=== PATIENT | female | born 1985 | race American Indian/Alaskan Native ===

== ENCOUNTER 2016-09-20 08:56 | Emergency (ER) | payer OTHER ==
[2016-09-20 08:57] VITALS: BMI 46.3
[2016-09-20] MEDS ORDERED: MethylPREDNISolone 40 mg Vial IM STA (09:22)
[2016-09-20] MEDS: Albuterol-Ipratrop 3 mg / 0.5 (3 ml) UD IH SCH ×6 (09:32→11:31)
--- NOTE | 2016-09-20 10:03 | ED PDOC ---
Arrival/HPI - General Chief Complaint: Respiratory Distress Time Seen by Provider: 09/20/16 09:19 Historian: Patient - History of Present Illness Narrative History of Present Illness (Text): 09/20/16 10:00 Patient reports 2 day history of dyspnea and wheezing despite treatment with inhaler and nebulized treatments, last treatment was at 5 AM. Episode apparently precipitated by unknown cause. Has (-) fever; (+) cough; (-) sputum production, (-) chest pain. Patient has previous history of emergency department visits last was 1 month ago. Patient has previous history of hospital admissions last was 2 years ago. Patient was never intubated in the past. PMD Krunal Past Medical History - Provider Review Nursing Documentation Reviewed: Yes - Infectious Disease Hx of Infectious Diseases: None - Tetanus Immunization Tetanus Immunization: Up to Date - Reproductive Menopause: No - Cardiac Hx Cardiac Disorders: No - Pulmonary Hx Asthma: Yes - Psychiatric Hx Depression: No Hx Emotional Abuse: No Hx Physical Abuse: No Hx Substance Use: No - Surgical History Hx Section: Yes - Anesthesia Hx Anesthesia: Yes Hx Anesthesia Reactions: No Hx Malignant Hyperthermia: No - Suicidal Assessment Feels Threatened In Home Enviroment: No Family/Social History - Physician Review Nursing Documentation Reviewed: Yes Family/Social History: Unknown Family HX Smoking Status: Never Smoked Hx Alcohol Use: Yes Hx Substance Use: No Hx Substance Use Treatment: No Allergies/Home Meds Allergies/Adverse Reactions: Allergies No Known Allergies Allergy (Verified 08/24/16 13:17) Review of Systems - Review of Systems Constitutional: Normal. absent: Fatigue, Weight Change, Fevers ENT: Normal. absent: Hearing Changes, Tinnitus, TMJ Pain Respiratory: SOB, Cough, Wheezing Cardiovascular: Normal. absent: Chest Pain, Palpitations Musculoskeletal: Normal. absent: Arthralgias, Back Pain Skin: Normal. absent: Rash, Skin Lesions Physical Exam - Physical Exam Narrative Physical Exam (Text): 09/20/16 10:02 GENERAL APPEARANCE: Patient is awake, alert, oriented x 3, in mild respiratory distress, speaking in full sentences, no tripod positioning, no accessory muscle use. SKIN: Warm, dry; (-) cyanosis. EYES: (-) conjunctival pallor. ENMT: Mucous membranes moist. Airway patent: (-) stridor. Pharynx: (-) swelling, (-) erythema. NECK: (-) tenderness, (-) stiffness, (-) lymphadenopathy. CHEST AND RESPIRATORY: (+) bilateral inspiratory and expiratory wheezing; (-) rales, (-) rhonchi, (-) rub; breath sounds equal bilaterally. HEART AND CARDIOVASCULAR: (-) irregularity; (-) murmur, (-) gallop. ABDOMEN AND GI: Soft; (-) tenderness. EXTREMITIES: (-) deformity, (-) edema. NEURO AND PSYCH: Mental status as above; (-) focal findings. Vital Signs Temp Pulse Resp BP Pulse Ox 09/20/16 12:08 98.0 F 81 18 125/73 96 09/20/16 10:00 88 16 127/80 100 09/20/16 09:00 17 09/20/16 08:57 98.2 F 88 17 126/87 95 Medical Decision Making ED Course and Treatment: 09/20/16 10:03 31 yo F with PMH of asthma presents with asthma exacerbation. Plan: -- Solumedrol IM -- Duonebs x3 - Medication Orders Current Medication Orders: Discontinued Medications Albuterol/Ipratropium (Duoneb 3 Mg/0.5 Mg (3 Ml) Ud) 3 ml IH Q15M ARISTIDES Stop: 09/20/16 10:01 Last Admin: 09/20/16 10:05 Dose: 3 ML Albuterol/Ipratropium (Duoneb 3 Mg/0.5 Mg (3 Ml) Ud) 3 ml IH Q15M ARISTIDES Stop: 09/20/16 11:31 Last Admin: 09/20/16 11:31 Dose: 3 ML Methylprednisolone (Solu-Medrol) 125 mg IM STAT STA Stop: 09/20/16 09:26 Last Admin: 09/20/16 09:32 Dose: 125 MG IM Administration Charges Document 09/20/16 09:32 SF (Rec: 09/20/16 09:32 SF [id number]) Injection Site MAR Injection Site Right Deltoid Charges for Administration # of IM Administrations 1 ED OBSERVATION Date of observation admission: 09/20/16 Time of observation admission: 09:22 - Observation admission statement Patient is being placed in observation because:: Of asthma exacerbation. - Goals of Observation Goals of observation are:: To monitor patient's response to treatment. - Progress Note Progress Note: 09/20/16 09:22 Patient placed in ED observation, 3 duonebs started and patient given solumedrol IM. 09/20/16 10:47 On reevaluation, patient states that she feels much improved, denies any chest pain, dyspnea or shortness of breath. It is laying in bed comfortably in no distress, speaking in full sentences, no accessory muscle use, no tripod positioning. On exam, lungs noted with continued inspiratory and expiratory wheezing. The patient given another set of 3 DuoNeb treatments. Will continue to observe for further improvement of symptoms. 09/20/16 12:25 On re-evaluation, patient states that she feels much improved with no chest pain , dyspnea or SOB. Patient states that she wants to go home and feels comfortable going home. Patient is resting comfortably in bed in no acute respiratory distress, speaking in full sentences. Lungs are clear to auscultation with minimal expiratory wheezing. Based on history and exam, plan will be for outpatient follow-up. Prescription provided. Patient states she fully agrees with and understands discharge instructions. States that she agrees with the plan and disposition. Verbalized and repeated discharge instructions and plan. I have given the patient opportunity to ask any additional questions. Follow up with primary care physician in 1-2 days without fail. Advised to take medication as prescribed. Return to the emergency room at any time for any new or worsening symptoms. - PA / COASTAL AND ESTUARY SPECIALIST / Resident Statement / has reviewed & agrees with the documentation as recorded. Disposition/Present on Arrival - Present on Arrival Any Indicators Present on Arrival: No History of DVT/PE: No History of Uncontrolled Diabetes: No Urinary Catheter: No History of Decub. Ulcer: No History Surgical Site Infection Following: None - Disposition Have Diagnosis and Disposition been Completed?: Yes Diagnosis: Asthma exacerbation Disposition: HOME/ ROUTINE Disposition Time: 12:25 Patient Plan: Discharge Condition: GOOD Discharge Instructions (ExitCare): Asthma (ED) Print Language: ALBANIAN Additional Instructions: Thank you for letting us take care of you today. You were treated for asthma exacerbation. The emergency medical care you received today was directed at your acute symptoms. If you were prescribed any medication, please fill it and take as directed. It may take several days for your symptoms to resolve. Return to the Emergency Department if your symptoms worsen, do not improve, or if you have any other problems. Please contact your doctor in 2 days for re-evaluation and follow up / or call one of the physicians. Bring any paperwork you were given at discharge with you along with any medications you are taking to your follow up visit. Our treatment cannot replace ongoing medical care by a primary care provider (PCP) outside of the emergency department. Thank you for allowing the [facility] team to be part of your care today. Prescriptions: Albuterol HFA [Ventolin HFA 90 mcg/actuation (8 g)] 2 puff IH [id number] #1 puff Nebulizer [Aeroeclipse] 1 each MC PRN PRN #1 each PRN Reason: Wheezing Albuterol 0.083% [Albuterol Sulfate 3 Ml] 3 ml IH Q4 #100 neb predniSONE [predniSONE Tab] 40 mg PO DAILY #8 tab Referrals: Zane Hector MD [Primary Care Provider] - Follow up with primary Forms: WORK NOTE
[2016-09-20 12:09] VITALS: BP 125/73; PULSE 81; RESP 18; TEMP 98; O2SAT 96
== END 2016-09-20 12:31 | disposition home or self-care (01) ==
LOC: ED 08:56
DX: J45.901 Unspecified asthma with (acute) exacerbation (principal)
CPT/HCPCS: 94150; 96372; 99284; J2930

== ENCOUNTER 2016-11-02 04:38 | Inpatient (IN) | payer OTHER ==
[2016-11-02] MEDS: Albuterol-Ipratrop 3 mg / 0.5 (3 ml) UD IH SCH ×6 (04:39→21:05)
[2016-11-02 04:41] VITALS: BMI 49.4
--- NOTE | 2016-11-02 04:47 | ED PDOC ---
Arrival/HPI - General Time Seen by Provider: 11/02/16 04:39 Historian: Patient - History of Present Illness Narrative History of Present Illness (Text): 11/02/16 04:40 Yael Deutsch is a 31 year old female, whose past medical history includes asthma and seasonal allergies, who presents to the Emergency department complaining of shortness of breath and wheezing tonight. Patient states symptoms are consistent with previous episodes of asthma. Patient denies any fever, chills, chest pain, nausea, vomiting, diarrhea, urinary symptoms, back pain, neck pain, headache, dizziness, or any other complaints. Time/Duration: Other (tonight) Symptom Onset: Gradual Symptom Course: Unchanged Activities at Onset: Rest, Light Context: Home Past Medical History - Provider Review Nursing Documentation Reviewed: Yes - Infectious Disease Hx of Infectious Diseases: None - Tetanus Immunization Tetanus Immunization: Up to Date - Cardiac Hx Cardiac Disorders: No - Pulmonary Hx Asthma: Yes - Psychiatric Hx Depression: No Hx Emotional Abuse: No Hx Physical Abuse: No Hx Substance Use: No - Surgical History Hx Section: Yes - Anesthesia Hx Anesthesia: Yes Hx Anesthesia Reactions: No Hx Malignant Hyperthermia: No - Suicidal Assessment Feels Threatened In Home Enviroment: No Family/Social History - Physician Review Nursing Documentation Reviewed: Yes Family/Social History: No Known Family HX Smoking Status: Never Smoked Hx Alcohol Use: Yes Hx Substance Use: No Hx Substance Use Treatment: No Allergies/Home Meds Allergies/Adverse Reactions: Allergies No Known Allergies Allergy (Verified 11/02/16 04:41) Home Medications: Home Meds Medication Instructions Recorded Confirmed Albuterol HFA [Ventolin HFA 90 2 puff IH PRN PRN 11/02/16 11/02/16 mcg/actuation (8 g)] Review of Systems - Physician Review All systems were reviewed & negative as marked: Yes - Review of Systems Constitutional: Normal. absent: Fevers Eyes: Normal ENT: Normal Respiratory: SOB, Wheezing Cardiovascular: Normal. absent: Chest Pain Gastrointestinal: Normal. absent: Abdominal Pain, Diarrhea, Nausea, Vomiting Genitourinary Female: Normal. absent: Dysuria, Frequency, Hematuria, Urine Output Changes Musculoskeletal: Normal. absent: Back Pain, Neck Pain Skin: Normal. absent: Rash Neurological: Normal. absent: Headache, Dizziness Endocrine: Normal Hemo/Lymphatic: Normal Psychiatric: Normal Physical Exam Vital Signs Reviewed: Yes Vital Signs Temp Pulse Resp BP Pulse Ox 11/02/16 07:40 99 H 20 115/50 L 100 11/02/16 06:56 68 149/67 95 11/02/16 04:46 99.2 F 115 H 28 H 161/68 H 100 Temperature: Afebrile Blood Pressure: Normal Pulse: Regular Respiratory Rate: Normal Appearance: Positive for: Well-Appearing, Non-Toxic, Comfortable Pain Distress: None Mental Status: Positive for: Alert and Oriented X 3 - Systems Exam Head: Present: Atraumatic, Normocephalic Pupils: Present: PERRL Extroacular Muscles: Present: EOMI Conjunctiva: Present: Normal Mouth: Present: Moist Mucous Membranes Neck: Present: Normal Range of Motion Respiratory/Chest: Present: Wheezes. No: Respiratory Distress, Accessory Muscle Use Cardiovascular: Present: Regular Rate and Rhythm, Normal S1, S2. No: Murmurs Abdomen: Present: Normal Bowel Sounds. No: Tenderness, Distention, Peritoneal Signs Back: Present: Normal Inspection Upper Extremity: Present: Normal Inspection. No: Cyanosis, Edema Lower Extremity: Present: Normal Inspection. No: Edema Neurological: Present: GCS=15, CN II-XII Intact, Speech Normal Skin: Present: Warm, Dry, Normal Color. No: Rashes Psychiatric: Present: Alert, Oriented x 3, Normal Insight, Normal Concentration Medical Decision Making ED Course and Treatment: 11/02/16 04:40 Impression: 31 year old female complaining of shortness of breath and wheezing tonight. Differential Diagnosis include but are not limited to: asthma Plan: -- Duoneb -- Solu-medrol -- Reassess and disposition Progress Notes: 11/02/16 06:04 On re-evaluation, pt is still wheezing. Case discussed with medical assisting program director, who is aware and agree with plan. 11/02/16 06:[address] Sharp, who is aware and agrees with plan. Accepts pt in to hospitalist service. Pt will go remote telemetry observation for asthma. - Lab Interpretations Lab Results: 11/03/16 08:00 11/03/16 08:00 Lab Results 11/03/16 08:00: Sodium 139, Potassium 4.3, Chloride 104, Carbon Dioxide 25, Anion Gap 14, BUN 12, Creatinine 0.7, Est GFR ( Amer) > 60, Est GFR (Non- Af Amer) > 60, Random Glucose 166 H, Calcium 9.6, Phosphorus 2.9, Magnesium 2.4 H, Total Bilirubin 0.4, AST 27, ALT 30, Alkaline Phosphatase 63, Total Protein 8.5 H, Albumin 4.3, Globulin 4.2, Albumin/Globulin Ratio 1.0 L 11/03/16 08:00: WBC 24.2 H D, RBC 4.66, Hgb 11.4 L, Hct 34.2 L, MCV 73.4 L, MCH 24.5 L, MCHC 33.3, RDW 15.5 H, Plt Count 295, MPV 11.2 H, Gran % 93.6 H, Lymph % (Auto) 2.7 L, Douglas % (Auto) 3.7, Eos % (Auto) 0.0 L, Baso % (Auto) 0.0, Gran # 22.60 H, Lymph # 0.7 L, Douglas # 0.9 H, Eos # 0.0, Baso # 0.01 11/02/16 07:15: pCO2 36, pO2 61.0 L, HCO3 22.3, ABG pH 7.40, ABG Total CO2 23.4 , ABG O2 Saturation 95.2, ABG O2 Content 14.8 L, ABG Base Excess -2.1 L, ABG Hemoglobin 11.3 L, ABG Carboxyhemoglobin 1.7 H, POC ABG HHb (Measured) 4.7, ABG Methemoglobin 0.6, ABG O2 Capacity 15.5 L, Hgb O2 Saturation 92.9 L, FiO2 21.0 11/02/16 06:05: Sodium 138, Potassium 3.7, Chloride 102, Carbon Dioxide 25, Anion Gap 15, BUN 12, Creatinine 0.8, Est GFR ( Amer) > 60, Est GFR (Non- Af Amer) > 60, Random Glucose 139 H, Calcium 9.0, Total Bilirubin 0.4, AST 23, ALT 30, Alkaline Phosphatase 68, Total Protein 8.4 H, Albumin 4.1, Globulin 4.3 , Albumin/Globulin Ratio 1.0 L 11/02/16 06:05: WBC 11.2 H, RBC 4.68, Hgb 11.3 L, Hct 34.4 L, MCV 73.5 L, MCH 24.1 L, MCHC 32.8, RDW 15.1 H, Plt Count 287, MPV 11.8 H, Gran % 82.8 H, Lymph % (Auto) 10.5 L, Douglas % (Auto) 3.8, Eos % (Auto) 2.5, Baso % (Auto) 0.4, Gran # 9.25 H, Lymph # 1.2, Douglas # 0.4, Eos # 0.3, Baso # 0.05 - RAD Interpretation Radiology Orders: 11/02/16 06:54 CHEST PORTABLE [RAD] Stat - Medication Orders Current Medication Orders: Acetaminophen (Tylenol 325mg Tab) 650 mg PO Q6H PRN PRN Reason: Pain, Mild (1-3) Albuterol/Ipratropium (Duoneb 3 Mg/0.5 Mg (3 Ml) Ud) 3 ml IH Q2H PRN PRN Reason: Shortness of Breath Last Admin: 11/03/16 19:12 Dose: 3 ml Enoxaparin Sodium (Lovenox) 40 mg SC DAILY [facility] PRN Reason: Protocol Last Admin: 11/03/16 09:26 Dose: 40 mg Guaifenesin/Dextromethorphan (Robitussin Dm) 10 ml PO Q4H PRN PRN Reason: Cough Last Admin: 11/02/16 11:30 Dose: 10 ml Ceftriaxone Sodium (Rocephin 1 Gram Ivpb) 1 gm in 100 mls @ 100 mls/hr IVPB DAILY [facility] PRN Reason: Protocol Last Admin: 11/03/16 09:27 Dose: 100 mls/hr Ibuprofen (Motrin Tab) 400 mg PO Q6H PRN PRN Reason: Fever >100.4 F Last Admin: 11/03/16 00:25 Dose: 400 mg Re-Assess: ANN Pain/Vitals Document 11/03/16 01:25 CARINE (Rec: 11/03/16 07:32 CARINE [id number]) Pain Reassessment Is This A Pain ReAssessment? Yes Presence of Pain Presence of Pain No Loratadine (Claritin) 10 mg PO DAILY PRN PRN Reason: Allergy symptoms Methylprednisolone (Solu-Medrol) 20 mg IVP Q12 [facility] Last Admin: 11/03/16 21:38 Dose: 20 mg Ondansetron HCl (Zofran Inj) 4 mg IVP Q6H PRN PRN Reason: Nausea/Vomiting Oxymetazoline HCl (Afrin 0.05%) 0 ml NS Q12H PRN PRN Reason: Dry nasal passages Pantoprazole Sodium (Protonix Ec Tab) 40 mg PO DAILY [facility] Last Admin: 11/03/16 09:26 Dose: 40 mg Discontinued Medications Acetaminophen (Tylenol 650mg/20.3ml Solution Ud) 650 mg PO STAT STA Stop: 11/02/16 06:12 Last Admin: 11/02/16 06:14 Dose: 650 mg Acetaminophen (Tylenol 325mg Tab) Confirm Administered Dose 650 mg .ROUTE .STK- MED ONE Stop: 11/02/16 06:14 Last Admin: 11/02/16 06:14 Dose: Albuterol/Ipratropium (Duoneb 3 Mg/0.5 Mg (3 Ml) Ud) Confirm Administered Dose 9 ml .ROUTE .STK-MED ONE Stop: 11/02/16 04:49 Last Admin: 11/02/16 04:51 Dose: 9 ml Albuterol/Ipratropium (Duoneb 3 Mg/0.5 Mg (3 Ml) Ud) 3 ml IH Q15M ARISTIDES Stop: 11/02/16 05:31 Last Admin: 11/02/16 04:58 Dose: Albuterol/Ipratropium (Duoneb 3 Mg/0.5 Mg (3 Ml) Ud) 3 ml IH Q4H [facility] Stop: 11/02/16 15:01 Last Admin: 11/03/16 00:59 Dose: 3 ml Albuterol/Ipratropium (Duoneb 3 Mg/0.5 Mg (3 Ml) Ud) 3 ml IH Q2H PRN PRN Reason: Shortness of Breath Stop: 11/02/16 11:01 Last Admin: 11/02/16 13:02 Dose: 3 ml Sodium Chloride (Sodium Chloride 0.9%) 1,000 mls @ 100 mls/hr IV .Q10H [facility] Last Admin: 11/03/16 09:27 Dose: 100 mls/hr Methylprednisolone (Solu-Medrol) Confirm Administered Dose 125 mg .ROUTE .STK- MED ONE Stop: 11/02/16 04:43 Last Admin: 11/02/16 04:54 Dose: Methylprednisolone (Solu-Medrol) 125 mg IVP ONCE ONE Stop: 11/02/16 04:53 Last Admin: 11/02/16 04:43 Dose: 125 mg Methylprednisolone (Solu-Medrol) 40 mg IVP Q8 [facility] Last Admin: 11/03/16 05:31 Dose: 40 mg Methylprednisolone (Solu-Medrol) 20 mg IVP Q12 [facility] Last Admin: 11/03/16 12:33 Dose: 20 mg - Jax Statement The provider has reviewed the documentation as recorded by the Jax Nash All medical record entries made by the Jax were at my direction and personally dictated by me. I have reviewed the chart and agree that the record accurately reflects my personal performance of the history, physical exam, medical decision making, and the department course for this patient. I have also personally directed, reviewed, and agree with the discharge instructions and disposition. Disposition/Present on Arrival - Present on Arrival Any Indicators Present on Arrival: No History of DVT/PE: No History of Uncontrolled Diabetes: No Urinary Catheter: No History Surgical Site Infection Following: None - Disposition Have Diagnosis and Disposition been Completed?: Yes Diagnosis: Asthma exacerbation Disposition: HOSPITALIZED Disposition Time: 06:40 Condition: GOOD
[2016-11-02] MEDS ORDERED: Albuterol-Ipratrop 3 mg / 0.5 (3 ml) UD ONE (04:48)
[2016-11-02] MEDS ORDERED: Acetaminophen 650mg/20.3ml solution UD PO STA (06:11)
[2016-11-02 06:43] LABS: ADD MANUAL DIFF? NO
[2016-11-02 06:56] LABS: BASO # 0.05 K/mm3 (0.0-2.0); BASO % 0.4 % (0.0-3.0); EOS # 0.3 (0.0-0.7); EOS % 2.5 % (1.5-5.0); GRAN # 9.25 (1.4-6.5); GRAN % 82.8 % (50.0-68.0); HEMATOCRIT 34.4 % (36.0-48.0); LYMPH # 1.2 (1.2-3.4); LYMPH % 10.5 % (22.0-35.0); MEAN CELL VOLUME 73.5 fL (80.0-105.0); MEAN CORPUSCULAR HEMOGLOBIN 24.1 pg (25.0-35.0); MEAN CORPUSCULAR HGB CONC 32.8 g/dl (31.0-37.0); MEAN PLATELET VOLUME 11.8 fl (7.0-11.0); MONO # 0.4 (0.1-0.6); MONO % 3.8 % (1.0-6.0); PLATELET COUNT 287 10^3/uL (120.0-450.0); RED CELL DISTRIBUTION WIDTH 15.1 % (11.5-14.5); WHITE BLOOD COUNT 11.2 10^3/ul (4.5-11.0)
[2016-11-02] MEDS: Sodium Chloride 0.9% 1,000 ML IV SCH (07:00)
--- NOTE | 2016-11-02 07:01 | CP.PCM.HP ---
History of Present Illness - History of Present Illness History of Present Illness: History of Present Illness: The patient is a 31 year old, morbidly obese, woman with a history of long-standing, mild persistent asthma who presents with several days of worsening shortness of breath and wheezing. She also reports an associated cough with yellow colored phlegm and rhinorrhea. She also reports several weeks of intermittent, dull right lower chest discomfort, unaffected by exertion or breathing. She denies fevers or chills. In the ED, she was tachypeic and having respiratory distress. Consequently, she will be admitted to the telemetry rinaldi for further management of her symptoms. Home Medications: Ventolin Inhaler Atrovent Inhaler (?) Allergies: NKDA Past Medical History: Per HPI Past Surgical History: Per HPI Family History: Non-contributory Social History: Denies tobacco and illicit drug use Occasional alcohol use Review of Systems: 14 bodily systems reviewed and found to be negative except as noted in the HPI Present on Admission - Present on Admission Any Indicators Present on Admission: No History of DVT/PE: No History of Uncontrolled Diabetes: No Past Patient History - Infectious Disease Hx of Infectious Diseases: None - Tetanus Immunizations Tetanus Immunization: Up to Date - Past Social History Smoking Status: Never Smoked - CARDIAC Hx Cardiac Disorders: No - PULMONARY Hx Asthma: Yes - NEUROLOGICAL Hx Neurological Disorder: No - HEENT Hx HEENT Problems: No - RENAL Hx Chronic Kidney Disease: No - ENDOCRINE/METABOLIC Hx Endocrine Disorders: No - HEMATOLOGICAL/ONCOLOGICAL Hx Blood Disorders: No - INTEGUMENTARY Hx Dermatological Problems: No - MUSCULOSKELETAL/RHEUMATOLOGICAL Hx Musculoskeletal Disorders: No - GASTROINTESTINAL Hx Gastrointestinal Disorders: No - GENITOURINARY/GYNECOLOGICAL Hx Genitourinary Disorders: No - PSYCHIATRIC Hx Depression: No Hx Emotional Abuse: No Hx Physical Abuse: No Hx Substance Use: No - SURGICAL HISTORY Hx Section: Yes - ANESTHESIA Hx Anesthesia: Yes Hx Anesthesia Reactions: No Hx Malignant Hyperthermia: No Meds Allergies/Adverse Reactions: Allergies Allergy/AdvReac Type Severity Reaction Status Date / Time No Known Allergies Allergy Verified 11/02/16 04:41 Physical Exam - Constitutional Additional comments: Uncomfortable appearing due to respiratory distress; A&Ox4 - Head Exam Head Exam: ATRAUMATIC, NORMAL INSPECTION, NORMOCEPHALIC - Eye Exam Eye Exam: Normal appearance Pupil Exam: PERRL - ENT Exam ENT Exam: Mucous Membranes Moist, Normal Exam - Neck Exam Neck exam: Positive for: Normal Inspection - Respiratory Exam Respiratory Exam: Prolonged Expiratory Phase, Wheezes, Respiratory Distress Additional comments: No accessory muscle use - Cardiovascular Exam Cardiovascular Exam: Tachycardia, REGULAR RHYTHM, +S1, +S2 - GI/Abdominal Exam Additional comments: Morbidly obese, soft, non-tender, non-distended - Extremities Exam Extremities exam: Positive for: normal inspection - Neurological Exam Additional comments: Grossly normal neuro exam Results - Vital Signs Recent Vital Signs: Last Vital Signs Temp 99.2 F 11/02/16 04:46 Pulse 68 11/02/16 06:56 Resp 27 H 11/02/16 04:46 BP 149/67 11/02/16 06:56 Pulse Ox 95 11/02/16 06:56 - Labs Result Diagrams: 11/02/16 06:05 11/02/16 06:05 Assessment & Plan - Assessment and Plan (Free Text) Plan: Assessment and Plan: The patient is a 31 year old, morbidly obese, woman with a history of long-standing, mild persistent asthma, who is being admitted to telemetry rinaldi for acute asthma exacerbation and acute bronchitis. 1. Acute Asthma Exacerbation: -Duo-neb breathing treatments ATC and PRN -continue with O2 via NC to keep sats > 92% -Solumedrol 40mg IV Q8hrs for bronchodilation -will check an ABG and CXR now -patient needs to be on a inhaled corticosteroid long-term 2. Acute Bronchitis: -likely viral etiology -will check a CXR to rule out pneumonia -PRN Robitussan for cough -PRN Claritin for seasonal allergy symptoms 3. Morbid Obesity: -after acute symptoms resolve, patient must be counseled on exercise and dieting DVT PPx: SCDs GI PPx: Protonix
[2016-11-02 07:17] LABS: ALKALINE PHOSPHATASE 68 U/L (38-133); ALT/SGPT 30 U/L (7-56); AST/SGOT 23 U/L (15-39); BILIRUBIN,TOTAL 0.4 mg/dL (0.2-1.3); BLOOD UREA NITROGEN 12 mg/dL (7-21); CARBON DIOXIDE 25 mmol/L (21-33); CHLORIDE 102 mmol/L (98-107); GFR AFRICAN-AMERICAN > 60; GLUCOSE,RANDOM 139 mg/dL (70-110); POTASSIUM 3.7 mmol/L (3.6-5.0); SODIUM 138 mmol/L (132-148); TOTAL PROTEIN 8.4 g/dL (5.8-8.3)
[2016-11-02 07:18] LABS: ARTERIAL BLOOD GAS HCO3 22.3 mmol/L (21-28); ARTERIAL BLOOD GAS O2 CAPACITY 15.5 mL/dl (16-24); ARTERIAL BLOOD GAS O2 CONTENT 14.8 ML/dl (15-23); ARTERIAL BLOOD HGB O2 SAT 92.9 % (95.0-98.0); CARBOXYHEMOGLOBIN 1.7 % (0.5-1.5); HHB 4.7 % (0-5); METHEMOGLOBIN 0.6 % (0.0-3.0)
[2016-11-02] MEDS ORDERED: guaiFENesin DM 200 mg-20 mg/10 ml UD PO PRN (07:29)
[2016-11-02] MEDS: Albuterol-Ipratrop 3 mg / 0.5 (3 ml) UD IH PRN ×2 (09:00→13:02)
--- NOTE | 2016-11-02 10:06 | RAD ---
HISTORY: sob COMPARISON: 08/24/2016 FINDINGS: LUNGS: No active pulmonary disease. PLEURA: No significant pleural effusion identified, no pneumothorax apparent. CARDIOVASCULAR: Normal. OSSEOUS STRUCTURES: No significant abnormalities. VISUALIZED UPPER ABDOMEN: Normal. OTHER FINDINGS: None. IMPRESSION: No active disease.
[2016-11-02] MEDS: Pantoprazole 40 mg EC Tab PO SCH (11:30)
[2016-11-02] MEDS: cefTRIAXone 1 gm 1 GM/100 ML BAG IVPB SCH (11:30)
[2016-11-02] MEDS: Enoxaparin 40 mg Syringe SC SCH (11:30)
[2016-11-02] MEDS: MethylPREDNISolone 40 mg Vial IVP SCH ×2 (15:08→21:09)
[2016-11-03] MEDS: Albuterol-Ipratrop 3 mg / 0.5 (3 ml) UD IH SCH (00:59)
[2016-11-03] MEDS ORDERED: Oxymetazoline 0.05% Nasal Spray (30 ml) NS PRN (01:38)
--- NOTE | 2016-11-03 02:25 | CARD ---
APPROVED REPORT EKG Measurement Heart [id number] ID [id number] <Conclusion> Normal sinus rhythm Nonspecific inferior T wave changes Abnormal ECG
[2016-11-03] MEDS: MethylPREDNISolone 40 mg Vial IVP SCH ×2 (05:31→21:38)
--- NOTE | 2016-11-03 07:28 | CP.PCM.PN ---
<Miguel Anderson - Last Filed: 11/03/16 13:29> Subjective - Date & Time of Evaluation Date of Evaluation: 11/03/16 Time of Evaluation: 07:20 - Subjective Subjective: Patient seen and examined this morning. Reports feeling better today. Patient had an episode of nosebleed over night. No longer bleeding. No other complaints. Objective - Vital Signs/Intake and Output Vital Signs (last 24 hours): Temp Pulse Resp BP Pulse Ox 99 F 99 H 20 120/71 99 11/02/16 16:00 11/03/16 02:00 11/02/16 16:00 11/02/16 16:00 11/02/16 16:00 Intake and Output: 11/03/16 11/03/16 06:59 18:59 Intake Total 1240 Balance 1240 - Medications Medications: Current Medications Acetaminophen (Tylenol 325mg Tab) 650 mg PO Q6H PRN PRN Reason: Pain, Mild (1-3) Albuterol/Ipratropium (Duoneb 3 Mg/0.5 Mg (3 Ml) Ud) 3 ml IH Q2H PRN PRN Reason: Shortness of Breath Enoxaparin Sodium (Lovenox) 40 mg SC DAILY [facility] PRN Reason: Protocol Last Admin: 11/02/16 11:30 Dose: 40 mg Guaifenesin/Dextromethorphan (Robitussin Dm) 10 ml PO Q4H PRN PRN Reason: Cough Last Admin: 11/02/16 11:30 Dose: 10 ml Sodium Chloride (Sodium Chloride 0.9%) 1,000 mls @ 100 mls/hr IV .Q10H ARISTIDES Last Admin: 11/02/16 07:00 Dose: 100 mls/hr Ceftriaxone Sodium (Rocephin 1 Gram Ivpb) 1 gm in 100 mls @ 100 mls/hr IVPB DAILY [facility] PRN Reason: Protocol Last Admin: 11/02/16 11:30 Dose: 100 mls/hr Ibuprofen (Motrin Tab) 400 mg PO Q6H PRN PRN Reason: Fever >100.4 F Last Admin: 11/03/16 00:25 Dose: 400 mg Loratadine (Claritin) 10 mg PO DAILY PRN PRN Reason: Allergy symptoms Methylprednisolone (Solu-Medrol) 40 mg IVP Q8 [facility] Last Admin: 11/03/16 05:31 Dose: 40 mg Ondansetron HCl (Zofran Inj) 4 mg IVP Q6H PRN PRN Reason: Nausea/Vomiting Oxymetazoline HCl (Afrin 0.05%) 0 ml NS Q12H PRN PRN Reason: Dry nasal passages Pantoprazole Sodium (Protonix Ec Tab) 40 mg PO DAILY [facility] Last Admin: 11/02/16 11:30 Dose: 40 mg - Constitutional Appears: No Acute Distress - Head Exam Head Exam: NORMOCEPHALIC - Eye Exam Eye Exam: Normal appearance - ENT Exam ENT Exam: Mucous Membranes Moist - Respiratory Exam Respiratory Exam: Wheezes. absent: Rhonchi - Cardiovascular Exam Cardiovascular Exam: +S1, +S2 - GI/Abdominal Exam GI & Abdominal Exam: Soft. absent: Distended, Firm, Guarding, Tenderness - Neurological Exam Neurological Exam: Alert, Awake, Oriented x3 - Psychiatric Exam Psychiatric exam: Normal Mood - Skin Skin Exam: Dry, Intact, Warm Assessment and Plan - Assessment and Plan (Free Text) Assessment: The patient is a 31 year old, morbidly obese, woman with a history of long-standing, mild persistent asthma, who is being admitted to telemetry rinaldi for acute asthma exacerbation and acute bronchitis. Plan: 1. Acute Asthma Exacerbation: -Duo-neb breathing treatments ATC and PRN -O2 via NC to keep sats > 92%, humidified -Solumedrol 20mg IV Q12hrs for bronchodilation -CXR: No acute findings -patient needs to be on a inhaled corticosteroid long-term -Elevated WBC, attributed to corticosteroid therapy -Clinically improving -D/Ctelemetry 2. Acute Bronchitis: -likely viral etiology -PRN Robitussan for cough -PRN Claritin for seasonal allergy symptoms 3. Morbid Obesity: -after acute symptoms resolve, -patient counseled on exercise and dieting DVT PPx: SCD/ Lovenox GI PPx: Protonix <Hakan ZIMMER,Jatinder - Last Filed: 11/03/16 13:51> Objective - Vital Signs/Intake and Output Vital Signs (last 24 hours): Temp Pulse Resp BP Pulse Ox 98.3 F 86 22 145/90 95 11/03/16 06:00 11/03/16 06:00 11/03/16 06:00 11/03/16 06:00 11/03/16 06:00 - Medications Medications: Current Medications Acetaminophen (Tylenol 325mg Tab) 650 mg PO Q6H PRN PRN Reason: Pain, Mild (1-3) Albuterol/Ipratropium (Duoneb 3 Mg/0.5 Mg (3 Ml) Ud) 3 ml IH Q2H PRN PRN Reason: Shortness of Breath Last Admin: 11/03/16 13:40 Dose: 3 ml Enoxaparin Sodium (Lovenox) 40 mg SC DAILY [facility] PRN Reason: Protocol Last Admin: 11/03/16 09:26 Dose: 40 mg Guaifenesin/Dextromethorphan (Robitussin Dm) 10 ml PO Q4H PRN PRN Reason: Cough Last Admin: 11/02/16 11:30 Dose: 10 ml Ceftriaxone Sodium (Rocephin 1 Gram Ivpb) 1 gm in 100 mls @ 100 mls/hr IVPB DAILY [facility] PRN Reason: Protocol Last Admin: 11/03/16 09:27 Dose: 100 mls/hr Ibuprofen (Motrin Tab) 400 mg PO Q6H PRN PRN Reason: Fever >100.4 F Last Admin: 11/03/16 00:25 Dose: 400 mg Loratadine (Claritin) 10 mg PO DAILY PRN PRN Reason: Allergy symptoms Methylprednisolone (Solu-Medrol) 20 mg IVP Q12 [facility] Last Admin: 11/03/16 12:33 Dose: 20 mg Ondansetron HCl (Zofran Inj) 4 mg IVP Q6H PRN PRN Reason: Nausea/Vomiting Oxymetazoline HCl (Afrin 0.05%) 0 ml NS Q12H PRN PRN Reason: Dry nasal passages Pantoprazole Sodium (Protonix Ec Tab) 40 mg PO DAILY [facility] Last Admin: 11/03/16 09:26 Dose: 40 mg Attending/Attestation - Attestation I have personally seen and examined this patient.: Yes I have fully participated in the care of the patient.: Yes I have reviewed all pertinent clinical information, including history, physical exam and plan: Yes Notes (Text): Patient was seen and examined with medical insurance verifier .Agreed with resident assessment and plan. 31 Morbidly obese female with acute asthma exacerbation, improving. Leukocytosis is due to IV Methylprednisolon. Patient is afebrile.Wheezing has improved.We will decrease the dose of methylprednisolon to 20 mg IVPB BID. If Patient will keep improving, will switch to oral prednisone in 24 hour. Management plan was discussed in detail with patient Education was provided.
[2016-11-03 08:19] LABS: ADD MANUAL DIFF? NO
[2016-11-03 08:22] LABS: BASO # 0.01 K/mm3 (0.0-2.0); GRAN % 93.6 % (50.0-68.0); HEMATOCRIT 34.2 % (36.0-48.0); LYMPH # 0.7 (1.2-3.4); LYMPH % 2.7 % (22.0-35.0); MEAN CELL VOLUME 73.4 fL (80.0-105.0); MEAN CORPUSCULAR HEMOGLOBIN 24.5 pg (25.0-35.0); MEAN CORPUSCULAR HGB CONC 33.3 g/dl (31.0-37.0); MEAN PLATELET VOLUME 11.2 fl (7.0-11.0); MONO # 0.9 (0.1-0.6); MONO % 3.7 % (1.0-6.0); PLATELET COUNT 295 10^3/uL (120.0-450.0); RED CELL DISTRIBUTION WIDTH 15.5 % (11.5-14.5); WHITE BLOOD COUNT 24.2 10^3/ul (4.5-11.0)
[2016-11-03 08:38] LABS: ALKALINE PHOSPHATASE 63 U/L (38-133); ALT/SGPT 30 U/L (7-56); AST/SGOT 27 U/L (15-39); BILIRUBIN,TOTAL 0.4 mg/dL (0.2-1.3); BLOOD UREA NITROGEN 12 mg/dL (7-21); CALCIUM 9.6 mg/dL (8.4-10.5); CARBON DIOXIDE 25 mmol/L (21-33); CHLORIDE 104 mmol/L (98-107); GFR AFRICAN-AMERICAN > 60; GLUCOSE,RANDOM 166 mg/dL (70-110); MAGNESIUM 2.4 mg/dL (1.7-2.2); PHOSPHOROUS 2.9 mg/dL (2.5-4.5); POTASSIUM 4.3 mmol/L (3.6-5.0); SODIUM 139 mmol/L (132-148); TOTAL PROTEIN 8.5 g/dL (5.8-8.3)
[2016-11-03] MEDS: Enoxaparin 40 mg Syringe SC SCH (09:26)
[2016-11-03] MEDS: Pantoprazole 40 mg EC Tab PO SCH (09:26)
[2016-11-03] MEDS: cefTRIAXone 1 gm 1 GM/100 ML BAG IVPB SCH (09:27)
[2016-11-03] MEDS: Sodium Chloride 0.9% 1,000 ML IV SCH (09:27)
[2016-11-03] MEDS: Albuterol-Ipratrop 3 mg / 0.5 (3 ml) UD IH PRN ×3 (10:38→19:12)
[2016-11-03] MEDS ORDERED: MethylPREDNISolone 40 mg Vial IVP SCH (12:30)
[2016-11-04 07:16] LABS: ADD MANUAL DIFF? NO
[2016-11-04 07:27] LABS: BASO # 0.01 K/mm3 (0.0-2.0); GRAN # 20.32 (1.4-6.5); GRAN % 89.5 % (50.0-68.0); HEMATOCRIT 33.7 % (36.0-48.0); LYMPH % 4.2 % (22.0-35.0); MEAN CELL VOLUME 73.3 fL (80.0-105.0); MEAN CORPUSCULAR HEMOGLOBIN 24.6 pg (25.0-35.0); MEAN CORPUSCULAR HGB CONC 33.5 g/dl (31.0-37.0); MEAN PLATELET VOLUME 11.3 fl (7.0-11.0); MONO # 1.4 (0.1-0.6); MONO % 6.3 % (1.0-6.0); PLATELET COUNT 306 10^3/uL (120.0-450.0); RED CELL DISTRIBUTION WIDTH 15.6 % (11.5-14.5); WHITE BLOOD COUNT 22.7 10^3/ul (4.5-11.0)
[2016-11-04 07:41] LABS: ALKALINE PHOSPHATASE 58 U/L (38-133); ALT/SGPT 28 U/L (7-56); AST/SGOT 22 U/L (15-39); BILIRUBIN,TOTAL 0.4 mg/dL (0.2-1.3); BLOOD UREA NITROGEN 12 mg/dL (7-21); CALCIUM 9.6 mg/dL (8.4-10.5); CARBON DIOXIDE 27 mmol/L (21-33); CHLORIDE 102 mmol/L (98-107); GFR AFRICAN-AMERICAN > 60; GLUCOSE,RANDOM 143 mg/dL (70-110); POTASSIUM 4.5 mmol/L (3.6-5.0); SODIUM 139 mmol/L (132-148); TOTAL PROTEIN 8.3 g/dL (5.8-8.3)
[2016-11-04 08:24] VITALS: BP 120/76; PULSE 70; RESP 19; TEMP 97.8; O2SAT 96
[2016-11-04] MEDS: Albuterol-Ipratrop 3 mg / 0.5 (3 ml) UD IH PRN (08:53)
[2016-11-04] MEDS: cefTRIAXone 1 gm 1 GM/100 ML BAG IVPB SCH (09:02)
[2016-11-04] MEDS: MethylPREDNISolone 40 mg Vial IVP SCH (09:03)
[2016-11-04] MEDS: Pantoprazole 40 mg EC Tab PO SCH (09:03)
[2016-11-04] MEDS: Enoxaparin 40 mg Syringe SC SCH (09:03)
--- NOTE | 2016-11-04 11:29 | CP.PCM.DIS ---
<Alejandro Gerardo - Last Filed: 11/06/16 18:50> Provider - Provider Date of Admission: 11/03/16 11:40 Attending physician: Jatinder Mcclendon MD Primary care physician: Lela Hector Time Spent in preparation of Discharge (in minutes): 45 Hospital Course - Lab Results Lab Results: Most Recent Lab Values WBC 22.7 10^3/ul (4.5-11.0) H 11/04/16 06:45 RBC 4.60 10^6/uL (3.5-6.1) 11/04/16 06:45 Hgb 11.3 gm/dL (12.0-16.0) L 11/04/16 06:45 Hct 33.7 % (36.0-48.0) L 11/04/16 06:45 MCV 73.3 fL (80.0-105.0) L 11/04/16 06:45 MCH 24.6 pg (25.0-35.0) L 11/04/16 06:45 MCHC 33.5 g/dl (31.0-37.0) 11/04/16 06:45 RDW 15.6 % (11.5-14.5) H 11/04/16 06:45 Plt Count 306 10^3/uL (120.0-450.0) 11/04/16 06:45 MPV 11.3 fl (7.0-11.0) H 11/04/16 06:45 Gran % 89.5 % (50.0-68.0) H 11/04/16 06:45 Lymph % (Auto) 4.2 % (22.0-35.0) L 11/04/16 06:45 [place] % (Auto) 6.3 % (1.0-6.0) H 11/04/16 06:45 Eos % (Auto) 0.0 % (1.5-5.0) L 11/04/16 06:45 Baso % (Auto) 0.0 % (0.0-3.0) 11/04/16 06:45 Gran # 20.32 (1.4-6.5) H 11/04/16 06:45 Lymph # 1.0 (1.2-3.4) L 11/04/16 06:45 [place] # 1.4 (0.1-0.6) H 11/04/16 06:45 Eos # 0.0 (0.0-0.7) 11/04/16 06:45 Baso # 0.01 K/mm3 (0.0-2.0) 11/04/16 06:45 pCO2 36 mm/Hg (35-45) 11/02/16 07:15 pO2 61.0 mm/Hg (80-100) L 11/02/16 07:15 HCO3 22.3 mmol/L (21-28) 11/02/16 07:15 ABG pH 7.40 (7.35-7.45) 11/02/16 07:15 ABG Total CO2 23.4 mmol.L (22-28) 11/02/16 07:15 ABG O2 Saturation 95.2 % (95-98) 11/02/16 07:15 ABG O2 Content 14.8 ML/dl (15-23) L 11/02/16 07:15 ABG Base Excess -2.1 mmol/L (-2.0-3.0) L 11/02/16 07:15 ABG Hemoglobin 11.3 g/dL (11.7-17.4) L 11/02/16 07:15 ABG Carboxyhemoglobin 1.7 % (0.5-1.5) H 11/02/16 07:15 POC ABG HHb (Measured) 4.7 % (0-5) 11/02/16 07:15 ABG Methemoglobin 0.6 % (0.0-3.0) 11/02/16 07:15 ABG O2 Capacity 15.5 mL/dl (16-24) L 11/02/16 07:15 Hgb O2 Saturation 92.9 % (95.0-98.0) L 11/02/16 07:15 FiO2 21.0 % 11/02/16 07:15 Sodium 139 mmol/L (132-148) 11/04/16 06:45 Potassium 4.5 mmol/L (3.6-5.0) 11/04/16 06:45 Chloride 102 mmol/L (98-107) 11/04/16 06:45 Carbon Dioxide 27 mmol/L (21-33) 11/04/16 06:45 Anion Gap 15 (10-20) 11/04/16 06:45 BUN 12 mg/dL (7-21) 11/04/16 06:45 Creatinine 0.7 mg/dL (0.5-1.4) 11/04/16 06:45 Est GFR ( Amer) > 60 11/04/16 06:45 Est GFR (Non-Af Amer) > 60 11/04/16 06:45 Random Glucose 143 mg/dL (70-110) H 11/04/16 06:45 Calcium 9.6 mg/dL (8.4-10.5) 11/04/16 06:45 Phosphorus 2.9 mg/dL (2.5-4.5) 11/03/16 08:00 Magnesium 2.4 mg/dL (1.7-2.2) H 11/03/16 08:00 Total Bilirubin 0.4 mg/dL (0.2-1.3) 11/04/16 06:45 AST 22 U/L (15-39) 11/04/16 06:45 ALT 28 U/L (7-56) 11/04/16 06:45 Alkaline Phosphatase 58 U/L (38-133) 11/04/16 06:45 Total Protein 8.3 g/dL (5.8-8.3) 11/04/16 06:45 Albumin 4.2 g/dL (3.0-4.8) 11/04/16 06:45 Globulin 4.1 gm/dL 11/04/16 06:45 Albumin/Globulin Ratio 1.0 (1.1-1.8) L 11/04/16 06:45 Total T3 0.93 ng/mL (0.97-1.69) L 11/04/16 06:45 - Hospital Course Hospital Course: Upon Admission: 31yo F with PMHx of mild persistent Asthma, morbid obesity here for evaluation of worsening shortness of breath. Patient was found to be in acute asthma exacerbation with acute viral bronchitis. Patient was treated with steroids and duonebs. Marked improvement in patient's respiratory status was achieved over the next two days. CXR unremarkable. No significant EKG changes. Patient was then transitioned to oral prednisone taper and was deemed stable for discharge. Patient was recommended to continue with her current treatment including short- acting b-agonist and steroid inhalers. She was also recommended to have an outpatient sleep study for further evaluation. Discussed plan in detail with the patient who understands and agrees. 1. Acute Asthma exacerbation; improved; Medrol dose pack; continue home regimen 2. Acute Bronchitis; likely viral 3. Morbid Obesity; rec out-patient sleep study Upon Discharge: Patient is cleared for discharge as per Dr. Mcclendon 1. Follow up with your doctor, Dr. Hector, within 1 week 2. Repeat CBC in one week to ensure leukocytosis improved from 22.7 3. Recommend out-patient sleep study 4. Resume home meds 5. Take new medication as directed (Sent to [facility] pharmacy) 6. Return to the ER with any concerning symptoms New Prescription: Medrol Dose Pack Discharge Exam - Head Exam Head Exam: ATRAUMATIC, NORMAL INSPECTION, NORMOCEPHALIC - Eye Exam Eye Exam: EOMI, Normal appearance. absent: Scleral icterus - ENT Exam ENT Exam: Mucous Membranes Moist - Respiratory Exam Respiratory Exam: Clear to PA & Lateral, NORMAL BREATHING PATTERN, UNREMARKABLE. absent: Accessory Muscle Use, Chest Wall Tenderness, Decreased Breath Sounds, Rales, Rhonchi, Wheezes, Respiratory Distress, Stridor - Cardiovascular Exam Cardiovascular Exam: RRR, +S1, +S2. absent: JVD - GI/Abdominal Exam GI & Abdominal Exam: Normal Bowel Sounds, Soft. absent: Distended, Firm, Guarding, Rebound - Extremities Exam Extremities exam: normal inspection - Back Exam Back exam: NORMAL INSPECTION - Neurological Exam Neurological exam: Alert, Normal Gait, Oriented x3 - Psychiatric Exam Psychiatric exam: Normal Affect, Normal Mood - Skin Skin Exam: Dry, Intact, Normal Color, Warm Discharge Plan - Discharge Medications Prescriptions: Methylprednisolone [Medrol Dose Pack (21 tabs)] See Taper PO DAILY #21 mg - Follow Up Plan Condition: GOOD Disposition: HOME/ ROUTINE Instructions: Asthma (DC) Additional Instructions: Patient is cleared for discharge as per Dr. Mcclendon 1. Follow up with your doctor, Dr. Hector, within 1 week 2. Repeat CBC in one week to ensure leukocytosis improved from 22.7 3. Recommend out-patient sleep study 4. Resume home meds 5. Take new medication as directed (Sent to [facility] pharmacy) 6. Return to the ER with any concerning symptoms New Prescription: Medrol Dose Pack Referrals: Zane Hector MD [Family Provider] - <Jatinder Mcclendon MD - Last Filed: 11/07/16 11:58> Provider - Provider Date of Admission: 11/03/16 11:40 Attending physician: Jatinder Mcclendon MD Hospital Course - Lab Results Lab Results: Most Recent Lab Values WBC 22.7 10^3/ul (4.5-11.0) H 11/04/16 06:45 RBC 4.60 10^6/uL (3.5-6.1) 11/04/16 06:45 Hgb 11.3 gm/dL (12.0-16.0) L 11/04/16 06:45 Hct 33.7 % (36.0-48.0) L 11/04/16 06:45 MCV 73.3 fL (80.0-105.0) L 11/04/16 06:45 MCH 24.6 pg (25.0-35.0) L 11/04/16 06:45 MCHC 33.5 g/dl (31.0-37.0) 11/04/16 06:45 RDW 15.6 % (11.5-14.5) H 11/04/16 06:45 Plt Count 306 10^3/uL (120.0-450.0) 11/04/16 06:45 MPV 11.3 fl (7.0-11.0) H 11/04/16 06:45 Gran % 89.5 % (50.0-68.0) H 11/04/16 06:45 Lymph % (Auto) 4.2 % (22.0-35.0) L 11/04/16 06:45 [place] % (Auto) 6.3 % (1.0-6.0) H 11/04/16 06:45 Eos % (Auto) 0.0 % (1.5-5.0) L 11/04/16 06:45 Baso % (Auto) 0.0 % (0.0-3.0) 11/04/16 06:45 Gran # 20.32 (1.4-6.5) H 11/04/16 06:45 Lymph # 1.0 (1.2-3.4) L 11/04/16 06:45 [place] # 1.4 (0.1-0.6) H 11/04/16 06:45 Eos # 0.0 (0.0-0.7) 11/04/16 06:45 Baso # 0.01 K/mm3 (0.0-2.0) 11/04/16 06:45 pCO2 36 mm/Hg (35-45) 11/02/16 07:15 pO2 61.0 mm/Hg (80-100) L 11/02/16 07:15 HCO3 22.3 mmol/L (21-28) 11/02/16 07:15 ABG pH 7.40 (7.35-7.45) 11/02/16 07:15 ABG Total CO2 23.4 mmol.L (22-28) 11/02/16 07:15 ABG O2 Saturation 95.2 % (95-98) 11/02/16 07:15 ABG O2 Content 14.8 ML/dl (15-23) L 11/02/16 07:15 ABG Base Excess -2.1 mmol/L (-2.0-3.0) L 11/02/16 07:15 ABG Hemoglobin 11.3 g/dL (11.7-17.4) L 11/02/16 07:15 ABG Carboxyhemoglobin 1.7 % (0.5-1.5) H 11/02/16 07:15 POC ABG HHb (Measured) 4.7 % (0-5) 11/02/16 07:15 ABG Methemoglobin 0.6 % (0.0-3.0) 11/02/16 07:15 ABG O2 Capacity 15.5 mL/dl (16-24) L 11/02/16 07:15 Hgb O2 Saturation 92.9 % (95.0-98.0) L 11/02/16 07:15 FiO2 21.0 % 11/02/16 07:15 Sodium 139 mmol/L (132-148) 11/04/16 06:45 Potassium 4.5 mmol/L (3.6-5.0) 11/04/16 06:45 Chloride 102 mmol/L (98-107) 11/04/16 06:45 Carbon Dioxide 27 mmol/L (21-33) 11/04/16 06:45 Anion Gap 15 (10-20) 11/04/16 06:45 BUN 12 mg/dL (7-21) 11/04/16 06:45 Creatinine 0.7 mg/dL (0.5-1.4) 11/04/16 06:45 Est GFR ( Amer) > 60 11/04/16 06:45 Est GFR (Non-Af Amer) > 60 11/04/16 06:45 Random Glucose 143 mg/dL (70-110) H 11/04/16 06:45 Calcium 9.6 mg/dL (8.4-10.5) 11/04/16 06:45 Phosphorus 2.9 mg/dL (2.5-4.5) 11/03/16 08:00 Magnesium 2.4 mg/dL (1.7-2.2) H 11/03/16 08:00 Total Bilirubin 0.4 mg/dL (0.2-1.3) 11/04/16 06:45 AST 22 U/L (15-39) 11/04/16 06:45 ALT 28 U/L (7-56) 11/04/16 06:45 Alkaline Phosphatase 58 U/L (38-133) 11/04/16 06:45 Total Protein 8.3 g/dL (5.8-8.3) 11/04/16 06:45 Albumin 4.2 g/dL (3.0-4.8) 11/04/16 06:45 Globulin 4.1 gm/dL 11/04/16 06:45 Albumin/Globulin Ratio 1.0 (1.1-1.8) L 11/04/16 06:45 Total T3 0.93 ng/mL (0.97-1.69) L 11/04/16 06:45 Attending/Attestation - Attestation I have personally seen and examined this patient.: Yes I have fully participated in the care of the patient.: Yes I have reviewed all pertinent clinical information, including history, physical exam and plan: Yes Notes (Text): 11/07/16 11:55 Patient was seen and examined with medical massage therapist .Agreed with resident assessment and plan. 31 yrs F with PMHx of mild persistent Asthma, morbid obesity here for evaluation of worsening shortness of breath. Patient was found to be in acute asthma exacerbation with acute viral bronchitis. Patient was treated with steroids and nebulization.Patient has responded well.Cough and dyspnea has improved.Patient does has leukocytosis at the time of discharge.This is to steroid.Patient is afebrile and does not has any evidence of infection.She will need repeat CBC in one week with PCP.Patient is ambulatory at the time of discharge. Management plan was discussed in detail with patient Education was provided. 11/07/16 11:58
[2016-11-04] MEDS ORDERED: Albuterol-Ipratrop 3 mg / 0.5 (3 ml) UD IH SCH (11:30)
[2016-11-04] MEDS ORDERED: Pneumococcal 23-Valent Vaccine IM ONE (12:12)
== END 2016-11-04 15:15 | disposition home or self-care (01) | DRG 97 ==
LOC: ED 04:38 → ERH 06:39 → 3RNO 09:55 → OBSVTOIN 11-03 11:40
PROVIDERS: ADMIT Internal Medicine; ATTEND Internal Medicine
PROC: 3E0F7GC Introduction of Other Therapeutic Substance into Respiratory Tract, Via Natural or Artificial Opening (ICD-10-PCS; principal; 2016-11-02)
DX: J45.31 Mild persistent asthma with (acute) exacerbation (principal); J20.9 Acute bronchitis, unspecified; Z68.42 Body mass index [BMI] 45.0-49.9, adult; E66.01 Morbid (severe) obesity due to excess calories; R04.0 Epistaxis

== ENCOUNTER 2017-02-01 14:12 | Emergency (ER) | payer MEDICAID, OTHER ==
[2017-02-01 14:12] VITALS: BMI 49.4
[2017-02-01 14:37] VITALS: RESP 18; TEMP 97.9
--- NOTE | 2017-02-01 14:48 | ED PDOC ---
Arrival/HPI - General Time Seen by Provider: 02/01/17 14:35 Historian: Patient - History of Present Illness Narrative History of Present Illness (Text): 02/01/17 14:42 Yael Deutsch is a 31 year old female, whose past medical history includes asthma, who presents to the emergency department complaining of shortness of breath since yesterday. Patient notes that current symptoms are identical to past asthma exacerbation symptoms. Patient states that she used a nebulizer at home 3 times with little relief. Patient denies any cough, chest pain, dyspnea on exertion, or any other complaints at this time. PMD: Dr. Hector Time/Duration: 24 hours Symptom Course: Unchanged Severity Level: Mild Activities at Onset: Rest Context: Home Past Medical History - Provider Review Nursing Documentation Reviewed: Yes - Infectious Disease Hx of Infectious Diseases: None - Tetanus Immunization Tetanus Immunization: Up to Date - Cardiac Hx Cardiac Disorders: No - Pulmonary Hx Asthma: Yes - Neurological Hx Neurological Disorder: No - HEENT Hx HEENT Disorder: No - Renal Hx Renal Disorder: No - Endocrine/Metabolic Hx Endocrine Disorders: No - Hematological/Oncological Hx Blood Disorders: No - Integumentary Hx Dermatological Disorder: No - Musculoskeletal/Rheumatological Hx Musculoskeletal Disorders: No Hx Falls: No - Gastrointestinal Hx Gastrointestinal Disorders: No - Genitourinary/Gynecological Hx Genitourinary Disorders: No - Psychiatric Hx Depression: No Hx Emotional Abuse: No Hx Physical Abuse: No Hx Substance Use: No - Surgical History Hx Section: Yes - Anesthesia Hx Anesthesia: Yes Hx Anesthesia Reactions: No Hx Malignant Hyperthermia: No - Suicidal Assessment Feels Threatened In Home Enviroment: No Family/Social History - Physician Review Nursing Documentation Reviewed: Yes Family/Social History: No Known Family HX Smoking Status: Never Smoked Hx Alcohol Use: Yes Hx Substance Use: No Hx Substance Use Treatment: No Allergies/Home Meds Allergies/Adverse Reactions: Allergies No Known Allergies Allergy (Verified 11/02/16 04:41) Home Medications: Home Meds Medication Instructions Recorded Confirmed Albuterol HFA [Ventolin HFA 90 2 puff IH PRN PRN 11/02/16 11/02/16 mcg/actuation (8 g)] Fluticasone Furoate [Arnuity 100 mcg IH 11/04/16 Ellipta] Physical Exam - Physical Exam Narrative Physical Exam (Text): - Review of Systems Constitutional: Normal. absent: Fatigue, Weight Change, Fevers Eyes: Normal ENT: Normal Respiratory: shortness of breath. absent: Cough, Sputum Cardiovascular: Normal absent: Chest pain, Palpitations, Syncope Gastrointestinal: Normal absent: Abdominal pain, Diarrhea, Nausea, Vomiting Genitourinary: Normal. absent: Dysuria, Frequency, Hematuria Musculoskeletal: Normal. absent: Arthralgias, Back Pain, Neck Pain Skin: Normal Neurological: Normal absent: Focal Weakness Endocrine: Normal Hemo/Lymphatic: Normal Psychiatric: Normal - Physical exam Patient appears age appropriate, speaking full sentences without difficulty. - Systems Exam Head: Present: Atraumatic, Normocephalic Pupils: Present: PERRL Extraocular Muscles: Present: EOMI Conjunctiva: Present: Normal Mouth: Present: Moist Mucous Membranes Neck: Present: Normal Range of Motion. No: MIDLINE TENDERNESS, Paraspinal Tenderness Respiratory/Chest: Expiratory and inspiratory wheezing. No: Accessory Muscle Use , Tachypnic Cardiovascular: Present: Regular Rate and Rhythm, Normal S1, S2, Peripheral Pulses Present. No: Murmurs Abdomen: Present: Normal Bowel Sounds, No: Tenderness, Peritoneal Signs, Rebound, Guarding, Distention Back: Present: Normal Inspection. No: Midline Tenderness, Paraspinal Tenderness Upper Extremity: Present: Normal Inspection. No: Cyanosis, Edema Lower Extremity: Present: Normal Inspection. No: Edema Neurological: Present: GCS=15, Speech Normal, cranial nerves II through XII fully intact with no cerebellar abnormality, neuro-sensory fully intact. No focal neurological deficits. Skin: Present: Warm, Dry, Normal Color. No: Rashes Lymphatic: Present: OX3, NI, NC Psychiatric: Present: Alert, Oriented x 3, Normal Insight, Normal Concentration Vital Signs Reviewed: Yes Vital Signs Temp Pulse Resp BP Pulse Ox 02/01/17 16:15 71 18 140/90 100 02/01/17 14:35 97.9 F 78 18 138/88 99 02/01/17 14:30 1 L Temperature: Afebrile Blood Pressure: Normal Pulse: Regular Respiratory Rate: Normal Appearance: Positive for: Well-Appearing, Non-Toxic, Comfortable Pain Distress: None Mental Status: Positive for: Alert and Oriented X 3 Medical Decision Making ED Course and Treatment: 02/01/17 14:42 Impression: 31 year old female complaining of shortness of breath since yesterday. On physical exam, patient has expiratory and inspiratory wheezing. Differential Diagnosis included but are not limited to: Asthma Exacerbation Plan: -- Duoneb and Solu-medrol -- Reassess and disposition Prior Visits: Notes and results from previous visits were reviewed. Patient last seen in the ED on 11/02/16 for shortness of breath and wheezing that day. Patient was admitted to hospitalist care for further evaluation. Progress Notes: EKG shows NSR at [address]-segment elevations, normal intervals. Interpreted by me. 02/01/17 17:27 on reeval, pt's lungs clear to ausc. b/l pt speaking full sentences without difficulty states she feels well and she feels comfortable being dc'd home with outpatient f/u pt states she has Rx for nebs and inhalers at home Pt states she understands to return to the ER right away for new or worsening symptoms or for inability to f/u with PMD or specialist as instructed. Patient states that she fully agrees with and understands discharge instructions. States that she agrees with the plan and disposition. Verbalized and repeated discharge instructions and plan. I have given the patient opportunity to ask any additional questions. - Medication Orders Current Medication Orders: Discontinued Medications Albuterol/Ipratropium (Duoneb 3 Mg/0.5 Mg (3 Ml) Ud) 3 ml IH Q15M ARISTIDES Stop: 02/01/17 15:31 Last Admin: 02/01/17 16:13 Dose: 3 ml Methylprednisolone (Solu-Medrol) 125 mg IVP STAT STA Stop: 02/01/17 14:54 Last Admin: 02/01/17 15:35 Dose: 125 mg - Scribe Statement The provider has reviewed the documentation as recorded by the Jax Marie Provider Scribe Attestation: All medical record entries made by the Johnibangélica were at my direction and personally dictated by me. I have reviewed the chart and agree that the record accurately reflects my personal performance of the history, physical exam, medical decision making, and the department course for this patient. I have also personally directed, reviewed, and agree with the discharge instructions and disposition. Disposition/Present on Arrival - Present on Arrival Any Indicators Present on Arrival: No History of DVT/PE: No History of Uncontrolled Diabetes: No Urinary Catheter: No History Surgical Site Infection Following: None - Disposition Have Diagnosis and Disposition been Completed?: Yes Diagnosis: Asthma exacerbation Disposition: HOME/ ROUTINE Disposition Time: 17:41 Patient Plan: Discharge Condition: GOOD Discharge Instructions (ExitCare): Asthma (ED) Additional Instructions: PLEASE RETURN TO THE EMERGENCY DEPARTMENT FOR NEW OR WORSENING SYMPTOMS. RETURN RIGHT AWAY IF YOU CANNOT FOLLOW UP WITH YOUR PRIMARY CARE DOCTOR, CLINIC, OR SPECIALIST IN 1-2 DAYS. Prescriptions: predniSONE [predniSONE Tab] 60 mg PO DAILY #12 tab Referrals: Zane Hector MD [Primary Care Provider] - Follow up with primary Forms: WORK NOTE
[2017-02-01] MEDS: Albuterol-Ipratrop 3 mg / 0.5 (3 ml) UD IH SCH ×3 (15:26→16:13)
[2017-02-01 16:16] VITALS: BP 140/90; PULSE 71; O2SAT 100
--- NOTE | 2017-02-01 19:08 | CARD ---
APPROVED REPORT EKG Measurement Heart [id number] <Conclusion> Normal sinus rhythm Nonspecific T wave abnormality Abnormal ECG
== END 2017-02-01 17:43 | disposition home or self-care (01) ==
LOC: ED 14:12
DX: J45.901 Unspecified asthma with (acute) exacerbation (principal)
CPT/HCPCS: 93005; 96374; 99284; J2930

== ENCOUNTER 2017-09-27 07:57 | Observation (INO) | payer MEDICAID, OTHER ==
[2017-09-27 08:15] VITALS: BMI 53.5
[2017-09-27] MEDS ORDERED: Albuterol-Ipratrop 3 mg / 0.5 (3 ml) UD IH STA (08:26)
--- NOTE | 2017-09-27 08:39 | ED PDOC ---
Arrival/HPI <Escobar Hickman - Last Filed: 09/27/17 09:28> - General Historian: Patient - History of Present Illness Time/Duration: 4-6 hours Symptom Onset: Sudden Symptom Course: Unchanged Quality: Aching, Tightness Activities at Onset: Sleeping <BjornCarlo - Last Filed: 09/27/17 12:49> - General Chief Complaint: Respiratory Distress Time Seen by Provider: 09/27/17 08:04 - History of Present Illness Narrative History of Present Illness (Text): 09/27/17 08:36 32 yo F with PMH of asthma presents complaining of chest pain, shortness of breath, wheezing, body aches, chills, and cough that started suddenly and woke her up from sleep at 1AM. Patient tried using her ventolin inhaler 10 times since onset of symptoms, with only minimal improvement. Pain is midchest, and under both breasts, worsens with bending forward and with deep inhalation. Symptoms started suddenly. She had similar episode one year ago, and was diagnosed with the flu at that time. She has been taking all her medications as prescribed (Qvar, ventolin, and nebulized albuterol). She reports one sick contact at work. She denies fever, diaphoresis, syncope. (Carlo Milan) Past Medical History <Escobar Hickman - Last Filed: 09/27/17 09:28> - Provider Review Nursing Documentation Reviewed: Yes - Travel History Have you recently traveled outside [place] w/in the past 3 mons?: No - Infectious Disease Hx of Infectious Diseases: None - Tetanus Immunization Tetanus Immunization: Up to Date - Reproductive Menopause: No Currently : No - Cardiac Hx Cardiac Disorders: No - Pulmonary Hx Respiratory Disorders: Yes Hx Asthma: Yes - Neurological Hx Neurological Disorder: No - HEENT Hx HEENT Disorder: No - Renal Hx Renal Disorder: No - Endocrine/Metabolic Hx Endocrine Disorders: No - Hematological/Oncological Hx Blood Disorders: No - Integumentary Hx Dermatological Disorder: No - Musculoskeletal/Rheumatological Hx Musculoskeletal Disorders: No Hx Falls: No - Gastrointestinal Hx Gastrointestinal Disorders: No - Genitourinary/Gynecological Hx Genitourinary Disorders: No - Psychiatric Hx Depression: No Hx Emotional Abuse: No Hx Physical Abuse: No Hx Substance Use: No - Surgical History Hx Section: Yes - Anesthesia Hx Anesthesia: Yes Hx Anesthesia Reactions: No Hx Malignant Hyperthermia: No - Suicidal Assessment Feels Threatened In Home Enviroment: No <Carlo Milan - Last Filed: 09/27/17 12:49> - Patient History Narrative Patient History: Asthma; has been hospitalized for asthma exacerbation in the past. Has never been intubated for asthma (Carlo Milan) Family/Social History - Physician Review Nursing Documentation Reviewed: Yes <Escobar Hickman - Last Filed: 09/27/17 09:28> - Physician Review Nursing Documentation Reviewed: Yes Family/Social History: Unknown Family HX Smoking Status: Never Smoked Hx Alcohol Use: Yes Frequency of alcohol use: Socially Hx Substance Use: No Hx Substance Use Treatment: No <Carlo Milan - Last Filed: 09/27/17 12:49> Narrative Family History (Free Text): 09/27/17 08:40 Asthma (Carlo Milan) Allergies/Home Meds <Escobar Hickman - Last Filed: 09/27/17 09:28> <Carlo Milan - Last Filed: 09/27/17 12:49> Allergies/Adverse Reactions: Allergies No Known Allergies Allergy (Verified 09/27/17 08:13) Home Medications: Home Meds Medication Instructions Recorded Confirmed Albuterol HFA [Ventolin HFA 90 2 puff IH PRN PRN 11/02/16 02/01/17 mcg/actuation (8 g)] Beclomethasone Dipropionate [Qvar] 8.7 gm IH 09/27/17 Review of Systems - Review of Systems Constitutional: Fatigue Eyes: Normal ENT: Normal Respiratory: SOB, Cough, Wheezing Cardiovascular: Chest Pain. absent: Palpitations, Edema, Syncope Gastrointestinal: Normal Genitourinary Female: Normal Musculoskeletal: Myalgias Skin: Normal Neurological: Normal. absent: Headache, Dizziness Endocrine: Normal Hemo/Lymphatic: Normal Psychiatric: Normal <Carlo Milan - Last Filed: 09/27/17 12:49> Physical Exam Vital Signs Reviewed: Yes Temperature: Afebrile Blood Pressure: Normal Pulse: Tachycardic Respiratory Rate: Normal Appearance: Positive for: Well-Appearing, Non-Toxic, Uncomfortable Pain Distress: Mild Mental Status: Positive for: Alert and Oriented X 3 - Systems Exam Head: Present: Atraumatic, Normocephalic Pupils: Present: PERRL Extroacular Muscles: Present: EOMI Conjunctiva: Present: Normal Mouth: Present: Moist Mucous Membranes Neck: Present: Normal Range of Motion Respiratory/Chest: Present: Wheezes, Decreased Breath Sounds Cardiovascular: Present: Regular Rate and Rhythm, Normal S1, S2 Abdomen: Present: Normal Bowel Sounds. No: Tenderness, Distention Upper Extremity: Present: Normal Inspection Lower Extremity: Present: Normal Inspection Neurological: Present: GCS=15, CN II-XII Intact Skin: Present: Warm, Dry, Normal Color Psychiatric: Present: Oriented x 3 <Carlo Milan - Last Filed: 09/27/17 12:49> Vital Signs Temp Pulse Resp BP Pulse Ox 09/27/17 10:16 96 H 20 122/71 98 09/27/17 08:30 96 09/27/17 08:14 99.1 F 116 H 116 H 112/68 99 Medical Decision Making <Escobar Hickman - Last Filed: 09/27/17 09:28> Reassessment Condition: Re-examined, Unchanged - Lab Interpretations I have reviewed the lab results: Yes Interpretation: Abnormal lab values (leukocytosis) - EKG Interpretation Interpreted by ED Physician: Yes Type: 12 lead EKG Comparison: Similar to previous EKG <Carlo Milan - Last Filed: 09/27/17 12:49> ED Course and Treatment: 09/27/17 09:18 Ordered duonebs and 125mg solumedrole Ordered CBC, CMP, PT/PTT, urine test, CXR Patient reevaluated, with mild improvement in dyspnea, still complaining of diffuse body aches and chest pain. Did not provide urine sample for test because she feels too weak. CXR not yet done without test. Ordered acetaminophen for pain; will order toradol if test negative. Still has mild wheezing on exam. Patient recently completed course of oral steroids, and was started on Qvar 4 days ago, when she last saw her PMD. 09/27/17 12:45 Reassessed patient, still with generalized weakness and body aches, still with wheezing, poor air exchange. Also with nausea/vomiting. Discussed case with hospitalist Dr. Jose Dejesus. Will admit to med/surg for observation for acute asthma exacerbation and failure of outpatient treatment. (Carlo Milan) - Lab Interpretations Lab Results: 09/27/17 08:26 09/27/17 08:26 Lab Results 09/27/17 09:00: Beta HCG, Quant < 2.39 09/27/17 08:45: Influenza Typ A,B (EIA) Pos for influenza b H 09/27/17 08:26: Sodium 139, Potassium 4.1, Chloride 105, Carbon Dioxide 23, Anion Gap 15, BUN 9, Creatinine 0.8, Est GFR ( Amer) > 60, Est GFR (Non- Af Amer) > 60, Random Glucose 123 H, Calcium 9.2, Total Bilirubin 0.3, AST 27, ALT 31, Alkaline Phosphatase 55, Total Protein 7.8, Albumin 3.9, Globulin 3.8, Albumin/Globulin Ratio 1.0 L 09/27/17 08:26: PT 12.7 H, INR 1.10 H, APTT 29.7 09/27/17 08:26: WBC 16.6 H D, RBC 4.45, Hgb 11.0 L, Hct 32.9 L, MCV 73.9 L, MCH 24.7 L, MCHC 33.4, RDW 15.7 H, Plt Count 241, MPV 10.9, Gran % 87.3 H, Lymph % ( Auto) 3.5 L, [place] % (Auto) 8.0 H, Eos % (Auto) 1.1 L, Baso % (Auto) 0.1, Gran # 14.53 H, Lymph # (Auto) 0.6 L, [place] # (Auto) 1.3 H, Eos # (Auto) 0.2, Baso # ( Auto) 0.01, Neutrophils % (Manual) 88 H, Lymphocytes % (Manual) 9 L, Monocytes % (Manual) 3, Platelet Evaluation P - RAD Interpretation Radiology Orders: 09/27/17 08:26 CHEST PORTABLE [RAD] Stat - Medication Orders Current Medication Orders: Acetaminophen (Tylenol 325mg Tab) 650 mg PO Q6H PRN PRN Reason: Pain, Mild (1-3) Albuterol/Ipratropium (Duoneb 3 Mg/0.5 Mg (3 Ml) Ud) 3 ml IH [id number] ARISTIDES Sodium Chloride (Sodium Chloride 0.9%) 1,000 mls @ 75 mls/hr IV [id number] ARISTIDES Methylprednisolone (Solu-Medrol) 40 mg IVP Q12 [facility] Ondansetron HCl (Zofran Inj) 4 mg IVP Q6H PRN PRN Reason: Nausea/Vomiting Oseltamivir Phosphate (Tamiflu Cap) 75 mg PO BID ARISTIDES PRN Reason: Protocol Discontinued Medications Albuterol/Ipratropium (Duoneb 3 Mg/0.5 Mg (3 Ml) Ud) 3 ml IH STAT STA Stop: 09/27/17 08:27 Last Admin: 09/27/17 08:39 Dose: 3 ml Ketorolac Tromethamine (Toradol) 15 mg IVP STAT STA Stop: 09/27/17 10:33 Last Admin: 09/27/17 11:10 Dose: 15 mg MAR Pain Assessment Document 09/27/17 11:10 Patricia (Rec: 09/27/17 11:22 [facility] [id number]) Pain Reassessment Is this a pain reassessment? No Sleep Is patient sleeping during reassessment? No Presence of Pain Presence of Pain Yes Pain Scale Used Pain Scale Used Numeric Description Description Intermittent Intensity of Pain at present 4 IVP Administration Document 09/27/17 11:10 ELZBIETA (Rec: 09/27/17 11:22 [facility] [id number]) Charges for Administration # of IVP Administrations 1 Methylprednisolone (Solu-Medrol) 125 mg IVP STAT STA Stop: 09/27/17 08:27 Last Admin: 09/27/17 08:39 Dose: 125 mg IVP Administration Document 09/27/17 08:39 [facility] (Rec: 09/27/17 08:39 [facility] [id number]) Charges for Administration # of IVP Administrations 1 Oseltamivir Phosphate (Tamiflu Cap) 75 mg PO ONCE ONE PRN Reason: Protocol Stop: 09/27/17 08:28 Last Admin: 09/27/17 08:39 Dose: 75 mg Disposition/Present on Arrival <Escobar Hickman - Last Filed: 09/27/17 09:28> - Present on Arrival Any Indicators Present on Arrival: No History of DVT/PE: No History of Uncontrolled Diabetes: No Urinary Catheter: No History of Decub. Ulcer: No History Surgical Site Infection Following: None - Disposition Have Diagnosis and Disposition been Completed?: Yes Disposition Time: 12:20 Isolation: Droplet Patient Plan: Observation <Carlo Milan Last Filed: 09/27/17 12:49> - Disposition Diagnosis: Asthma exacerbation, Leukocytosis, Influenza B Disposition: HOSPITALIZED Patient Problems: Current Active Problems Problem Status Onset Asthma exacerbation Acute Influenza B Acute Condition: FAIR Referrals: Zacarias Shen MD [Primary Care Provider] - Follow up with primary Forms: [employer] (Guyanese)
[2017-09-27 08:43] LABS: BASO # 0.01 K/mm3 (0.0-2.0); BASO % 0.1 % (0.0-3.0); EOS # 0.2 (0.0-0.7); EOS % 1.1 % (1.5-5.0); GRAN # 14.53 (1.4-6.5); GRAN % 87.3 % (50.0-68.0); LYMPH # 0.6 (1.2-3.4); LYMPH % 3.5 % (22.0-35.0); MEAN CELL VOLUME 73.9 fl (80.0-105.0); MEAN CORPUSCULAR HEMOGLOBIN 24.7 pg (25.0-35.0); MEAN CORPUSCULAR HGB CONC 33.4 g/dl (31.0-37.0); MEAN PLATELET VOLUME 10.9 fl (7.0-11.0); MONO # 1.3 (0.1-0.6); PLATELET COUNT 241 10^3/uL (120.0-450.0); RBC 4.45 10^6/uL (3.5-6.1); RED CELL DISTRIBUTION WIDTH 15.7 % (11.5-14.5); WHITE BLOOD COUNT 16.6 10^3/ul (4.5-11.0)
[2017-09-27 08:52] LABS: INR 1.1 (0.93-1.08); PROTHROMBIN TIME 12.7 SECONDS (9.4-12.5)
[2017-09-27 08:53] LABS: PARTIAL THROMBOPLASTIN TIME 29.7 Seconds (25.1-36.5)
[2017-09-27 08:54] LABS: ALBUMIN 3.9 g/dL (3.0-4.8); ALT/SGPT 31 U/L (7-56); AST/SGOT 27 U/L (14-36); BLOOD UREA NITROGEN 9 mg/dL (7-21); CALCIUM 9.2 mg/dL (8.4-10.5); GFR AFRICAN-AMERICAN > 60; GFR NON-AFRICAN AMERICAN > 60
[2017-09-27 09:07] LABS: LYMPHOCYTE 9 % (22.0-35.0); MONOCYTE 3 % (1.0-6.0); NEUTROPHIL 88 % (50.0-70.0); PLATELET ESTIMATE P (NORMAL)
--- NOTE | 2017-09-27 11:28 | RAD ---
HISTORY: SOB; Asthma Exb COMPARISON: 11/02/2016 FINDINGS: LUNGS: No active pulmonary disease. PLEURA: No significant pleural effusion identified, no pneumothorax apparent. CARDIOVASCULAR: There is moderate vascular congestion OSSEOUS STRUCTURES: No significant abnormalities. VISUALIZED UPPER ABDOMEN: Normal. OTHER FINDINGS: None. IMPRESSION: Moderate vascular congestion
--- NOTE | 2017-09-27 11:54 | CP.PCM.HP ---
<Dillon Hernandez - Last Filed: 09/27/17 13:59> History of Present Illness - History of Present Illness History of Present Illness: Subjective: CC: Chest Pain, SOB HPI: Patient is a 32 yo F with PMHx of asthma and ERENDIRA who presents to the ED for evaluation and treatment of chest pain, shortness of breath, wheezing, body aches, chills, and non productive cough which began this morning with no specific provoking event. States that these symptoms woke her up from sleep. States chest pain originates and remains localized to the superficial tissue under bilateral breasts. It is associated with deep inspiration and coughing. Admits to using her ventolin inhaler 10 times since onset of symptoms, with only minimal improvement. Admits to similar symptoms approximately 1 year ago when she was diagnosed with an influenza infection. Admits to experiencing one bout of nonbloody nonbilious emesis. Admits to sick contact at work. Denies recent travel. Denies fever, abdominal pain, diarrhea, constipation, and urinary symptoms. PMHx: asthma, ERENDIRA PSHx: c- sections x 2 Allergies: None Social hx: social ETOH use, denies Tobacco use, denies illicit drug use Family Hx: mother- asthma Physical Examination: - Head Exam Head Exam: ATRAUMATIC, NORMOCEPHALIC - Constitutional Appears: Non-toxic, No Acute Distress - Head Exam Head Exam: ATRAUMATIC, NORMOCEPHALIC - Eye Exam Eye Exam: EOMI - ENT Exam ENT Exam: Mucous Membranes Moist - Neck Exam Neck exam: Positive for: Full Rom - Respiratory Exam Respiratory Exam: expiratory wheezing, decreased breath sounds bilaterally - Cardiovascular Exam Cardiovascular Exam: tachycardia, +S1, +S2. absent: Systolic Murmur - GI/Abdominal Exam GI & Abdominal Exam: Normal Bowel Sounds, Soft, Non tender to palpation absent : Distended, Firm, Mass, Rebound, Rigid - Extremities Exam Extremities exam: Positive for: normal inspection. Negative for: calf tenderness, pedal edema - Neurological Exam Neurological exam: Alert, Oriented x3 - Psychiatric Exam Psychiatric exam: Normal Affect, Normal Mood - Skin Skin Exam: Intact, Normal Color, Warm Assessment and Plan: Patient is a 32 yo F with PMHx of asthma who was admitted for evaluation and treamtent of chest pain, shortness of breath, wheezing, body aches, chills, and cough. Positive for influenza B. Influenza B Infection; Leukocytosis, Sepsis - SIRs criteria met with infection- HR > 90bpm, leukocytosis 16.6 - continue tamiflu 75mg PO BID x 4 more days - IVF NS @ 75 - respiratory droplet precautions Chest Pain - EKG reviewed and aprpeciated- sinus tachycardia, HR 112 bpm, Qtc- 439, t wave inversions in leads II, III, and AVF - likely MSK in nature - troponins ordered and pending to rule out ACS- will follow up - ECHO ordered and pending Acute Exacerbation of Asthma - Duonebs q4 - solumedrol 40 IV q12 - CXR reviewed and appreciated- Moderate vascular congestion ERENDIRA - head of bed greater than 30 degrees - CPAP at 6 Prophylaxis - DVT ppx- SCDs - GI ppx- not indicated Patient seen, case discussed with, and plan approved by attending physician, Dr. Dejesus Present on Admission - Present on Admission Any Indicators Present on Admission: No Past Patient History - Infectious Disease Hx of Infectious Diseases: None - Tetanus Immunizations Tetanus Immunization: Up to Date - Past Social History Smoking Status: Never Smoked - CARDIAC Hx Cardiac Disorders: No - PULMONARY Hx Respiratory Disorders: Yes Hx Asthma: Yes - NEUROLOGICAL Hx Neurological Disorder: No - HEENT Hx HEENT Problems: No - RENAL Hx Chronic Kidney Disease: No - ENDOCRINE/METABOLIC Hx Endocrine Disorders: No - HEMATOLOGICAL/ONCOLOGICAL Hx Blood Disorders: No - INTEGUMENTARY Hx Dermatological Problems: No - MUSCULOSKELETAL/RHEUMATOLOGICAL Hx Musculoskeletal Disorders: No Hx Falls: No - GASTROINTESTINAL Hx Gastrointestinal Disorders: No - GENITOURINARY/GYNECOLOGICAL Hx Genitourinary Disorders: No - PSYCHIATRIC Hx Depression: No Hx Emotional Abuse: No Hx Physical Abuse: No Hx Substance Use: No - SURGICAL HISTORY Hx Section: Yes - ANESTHESIA Hx Anesthesia: Yes Hx Anesthesia Reactions: No Hx Malignant Hyperthermia: No Meds Allergies/Adverse Reactions: Allergies Allergy/AdvReac Type Severity Reaction Status Date / Time No Known Allergies Allergy Verified 09/27/17 08:13 Results - Vital Signs Recent Vital Signs: Last Vital Signs Temp 99.1 F 09/27/17 08:14 Pulse 96 H 09/27/17 10:16 Resp 20 09/27/17 10:16 BP 122/71 09/27/17 10:16 Pulse Ox 98 09/27/17 10:16 - Labs Result Diagrams: 09/27/17 08:26 09/27/17 08:26 Labs: Laboratory Results - last 24 hr 09/27/17 09/27/17 09/27/17 08:26 08:26 08:26 WBC 16.6 H D RBC 4.45 Hgb 11.0 L Hct 32.9 L MCV 73.9 L MCH 24.7 L MCHC 33.4 RDW 15.7 H Plt Count 241 MPV 10.9 Gran % 87.3 H Lymph % (Auto) 3.5 L [place] % (Auto) 8.0 H Eos % (Auto) 1.1 L Baso % (Auto) 0.1 Gran # 14.53 H Lymph # (Auto) 0.6 L [place] # (Auto) 1.3 H Eos # (Auto) 0.2 Baso # (Auto) 0.01 Neutrophils % (Manual) 88 H Lymphocytes % (Manual) 9 L Monocytes % (Manual) 3 Platelet Evaluation P PT 12.7 H INR 1.10 H APTT 29.7 Sodium 139 Potassium 4.1 Chloride 105 Carbon Dioxide 23 Anion Gap 15 BUN 9 Creatinine 0.8 Est GFR ( Amer) > 60 Est GFR (Non-Af Amer) > 60 Random Glucose 123 H Calcium 9.2 Total Bilirubin 0.3 AST 27 ALT 31 Alkaline Phosphatase 55 Total Protein 7.8 Albumin 3.9 Globulin 3.8 Albumin/Globulin Ratio 1.0 L Beta HCG, Quant Influenza Typ A,B (EIA) 09/27/17 09/27/17 08:45 09:00 WBC RBC Hgb Hct MCV MCH MCHC RDW Plt Count MPV Gran % Lymph % (Auto) [place] % (Auto) Eos % (Auto) Baso % (Auto) Gran # Lymph # (Auto) [place] # (Auto) Eos # (Auto) Baso # (Auto) Neutrophils % (Manual) Lymphocytes % (Manual) Monocytes % (Manual) Platelet Evaluation PT INR APTT Sodium Potassium Chloride Carbon Dioxide Anion Gap BUN Creatinine Est GFR ( Amer) Est GFR (Non-Af Amer) Random Glucose Calcium Total Bilirubin AST ALT Alkaline Phosphatase Total Protein Albumin Globulin Albumin/Globulin Ratio Beta HCG, Quant < 2.39 Influenza Typ A,B (EIA) Pos for influenza b H <Latonia Dejesus B - Last Filed: 09/27/17 18:25> Results - Vital Signs Recent Vital Signs: Last Vital Signs Temp 99.2 F 04/09/18 14:21 Pulse 92 H 09/27/17 14:21 Resp 20 09/27/17 14:21 BP 123/66 09/27/17 14:21 Pulse Ox 97 09/27/17 14:21 - Labs Result Diagrams: 09/27/17 08:26 09/27/17 08:26 Attending/Attestation - Attestation I have personally seen and examined this patient.: Yes I have fully participated in the care of the patient.: Yes I have reviewed all pertinent clinical information: Yes Notes (Text): I have seen and examined the patient at bedside. Agree with the above note with the following additions/ exceptions: Briefly this is 32 year old female with history of asthma, ERENDIRA, morbid obesity who came for evaluation of chest pain, dyspnea, wheezing, body aches, chills and cough. She was found to have influenza B and asthma exacerbation. Start tamiflu and droplet precautions. Will check serial troponons, ekg and echo. Start Duonebs and solumedrol. CXR revealed venous congestion. Upon discharge patient will follow up with Dr Zacarias Shen. Dr Latonia Dejesus
[2017-09-27] MEDS ORDERED: Sodium Chloride 0.9% 1,000 ML IV SCH (12:30)
[2017-09-27 13:39] LABS: TROPONIN I < 0.01 ng/mL
[2017-09-27 13:45] LABS: CK-MB 0.6 ng/mL (0.0-3.6)
--- NOTE | 2017-09-27 13:54 | CARD ---
APPROVED REPORT EKG Measurement Heart [id number] NM [id number] <Conclusion> Sinus tachycardia STTW changes c/w ischemia.
[2017-09-27] MEDS: Albuterol-Ipratrop 3 mg / 0.5 (3 ml) UD IH SCH ×2 (15:30→20:14)
[2017-09-27 19:11] LABS: TROPONIN I < 0.01 ng/mL
[2017-09-27] MEDS ORDERED: Pneumococcal 23-Valent Vaccine IM ONE (21:54)
[2017-09-28 01:26] LABS: TROPONIN I < 0.01 ng/mL
[2017-09-28] MEDS: Albuterol-Ipratrop 3 mg / 0.5 (3 ml) UD IH SCH ×4 (01:50→11:39)
[2017-09-28 07:14] LABS: GRAN # 27.6 (1.4-6.5); GRAN % 91.5 % (50.0-68.0); HEMOGLOBIN 10.7 g/dL (12.0-16.0); LYMPH # 1.2 (1.2-3.4); LYMPH % 4.1 % (22.0-35.0); MEAN CELL VOLUME 73.6 fl (80.0-105.0); MEAN CORPUSCULAR HEMOGLOBIN 24.5 pg (25.0-35.0); MEAN CORPUSCULAR HGB CONC 33.3 g/dl (31.0-37.0); MEAN PLATELET VOLUME 11.5 fl (7.0-11.0); MONO # 1.3 (0.1-0.6); MONO % 4.4 % (1.0-6.0); RBC 4.36 10^6/uL (3.5-6.1); RED CELL DISTRIBUTION WIDTH 15.8 % (11.5-14.5)
[2017-09-28 07:35] LABS: WHITE BLOOD COUNT 30.2 10^3/ul (4.5-11.0)
[2017-09-28 07:48] VITALS: BP 141/75; PULSE 88; RESP 20; TEMP 98.1; O2SAT 98
[2017-09-28 07:56] LABS: ALBUMIN 3.8 g/dL (3.0-4.8); ALT/SGPT 28 U/L (7-56); AST/SGOT 24 U/L (14-36); BLOOD UREA NITROGEN 11 mg/dL (7-21); CALCIUM 9.1 mg/dL (8.4-10.5); GFR AFRICAN-AMERICAN > 60; GFR NON-AFRICAN AMERICAN > 60
--- NOTE | 2017-09-28 09:55 | CP.PCM.DIS ---
<Dillon Hernandez - Last Filed: 09/28/17 09:52> Provider - Provider Date of Admission: 09/27/17 12:44 Attending physician: Latonia Dejesus MD Primary care physician: Zacarias Shen MD Time Spent in preparation of Discharge (in minutes): 45 Diagnosis - Discharge Diagnosis (1) Influenza B Status: Acute Priority: Medium (2) Asthma exacerbation Status: Resolved Priority: Medium Hospital Course - Lab Results Lab Results: Most Recent Lab Values WBC 30.2 10^3/ul (4.5-11.0) H* D 09/28/17 06:45 RBC 4.36 10^6/uL (3.5-6.1) 09/28/17 06:45 Hgb 10.7 g/dL (12.0-16.0) L 09/28/17 06:45 Hct 32.1 % (36.0-48.0) L 09/28/17 06:45 MCV 73.6 fl (80.0-105.0) L 09/28/17 06:45 MCH 24.5 pg (25.0-35.0) L 09/28/17 06:45 MCHC 33.3 g/dl (31.0-37.0) 09/28/17 06:45 RDW 15.8 % (11.5-14.5) H 09/28/17 06:45 Plt Count 261 10^3/uL (120.0-450.0) 09/28/17 06:45 MPV 11.5 fl (7.0-11.0) H 09/28/17 06:45 Gran % 91.5 % (50.0-68.0) H 09/28/17 06:45 Lymph % (Auto) 4.1 % (22.0-35.0) L 09/28/17 06:45 York % (Auto) 4.4 % (1.0-6.0) 09/28/17 06:45 Eos % (Auto) 0.0 % (1.5-5.0) L 09/28/17 06:45 Baso % (Auto) 0.0 % (0.0-3.0) 09/28/17 06:45 Gran # 27.60 (1.4-6.5) H 09/28/17 06:45 Lymph # (Auto) 1.2 (1.2-3.4) 09/28/17 06:45 York # (Auto) 1.3 (0.1-0.6) H 09/28/17 06:45 Eos # (Auto) 0.0 (0.0-0.7) 09/28/17 06:45 Baso # (Auto) 0.00 K/mm3 (0.0-2.0) 09/28/17 06:45 Neutrophils % (Manual) 88 % (50.0-70.0) H 09/27/17 08:26 Lymphocytes % (Manual) 9 % (22.0-35.0) L 09/27/17 08:26 Monocytes % (Manual) 3 % (1.0-6.0) 09/27/17 08:26 Platelet Evaluation P (NORMAL) 09/27/17 08:26 PT 12.7 SECONDS (9.4-12.5) H 09/27/17 08:26 INR 1.10 (0.93-1.08) H 09/27/17 08:26 APTT 29.7 Seconds (25.1-36.5) 09/27/17 08:26 Sodium 140 mmol/L (132-148) 09/28/17 06:45 Potassium 3.9 mmol/L (3.6-5.0) 09/28/17 06:45 Chloride 106 mmol/L (98-107) 09/28/17 06:45 Carbon Dioxide 24 mmol/L (21-33) 09/28/17 06:45 Anion Gap 14 (10-20) 09/28/17 06:45 BUN 11 mg/dL (7-21) 09/28/17 06:45 Creatinine 0.7 mg/dl (0.7-1.2) 09/28/17 06:45 Est GFR ( Amer) > 60 09/28/17 06:45 Est GFR (Non-Af Amer) > 60 09/28/17 06:45 Random Glucose 138 mg/dL (70-110) H 09/28/17 06:45 Calcium 9.1 mg/dL (8.4-10.5) 09/28/17 06:45 Total Bilirubin 0.3 mg/dL (0.2-1.3) 09/28/17 06:45 AST 24 U/L (14-36) 09/28/17 06:45 ALT 28 U/L (7-56) 09/28/17 06:45 Alkaline Phosphatase 57 U/L (38-126) 09/28/17 06:45 Lactate Dehydrogenase 469 U/L (333-699) 09/28/17 00:48 Total Creatine Kinase 186 U/L (35-230) 09/28/17 00:48 CK-MB (CK-2) 0.6 ng/mL (0.0-3.6) 09/27/17 09:00 CK-MB (CK-2) % Cancelled 09/27/17 09:00 Troponin I < 0.01 ng/mL 09/28/17 00:48 Total Protein 7.5 g/dL (5.8-8.3) 09/28/17 06:45 Albumin 3.8 g/dL (3.0-4.8) 09/28/17 06:45 Globulin 3.7 gm/dL 09/28/17 06:45 Albumin/Globulin Ratio 1.0 (1.1-1.8) L 09/28/17 06:45 Beta HCG, Quant < 2.39 mIU/mL (0-6.15) 09/27/17 09:00 Influenza Typ A,B (EIA) Pos for influenza b (NEGATIVE) H 09/27/17 08:45 - Hospital Course Hospital Course: Patient is a 32 yo F with PMHx of asthma who was admitted for evaluation and treatment of chest pain, shortness of breath, wheezing, body aches, chills, and cough. With the use of physical examinations, lab work, and imaging the patient was diagnosed with and treated for an influenza B infection and acute exacerbation of asthma. During their hospital stay the patient underwent a CXR and ECHO which were reviewed, appreciated, and utilized in the management of the patients clinical course. Patients chest xray showed moderate venous congestion. ECHO read is pending at time of discharge. Will follow up on results and inform patient. Patient was treated with tamiflu, intravenous fluids, IV steroids amongst other empiric/therapeutic medications. At this time the patient is medically stable for discharge. Patient understands and appreciates discharge plan. Patient instructed to follow up with primary care physicians within three to five days from discharge. Furthermore, the patient is instructed to take medications as prescribed and to return to emergency room for evaluation of intractable headache, fever, chills, dizziness, chest pain, shortness of breath, abdominal pain, nausea, vomiting, diarrhea, constipation, and urinary symptoms. This is a brief summary of the patients hospital course. Please see patient chart for full details. Discharge Exam - Additional Findings Additional findings: - Head Exam Head Exam: ATRAUMATIC, NORMOCEPHALIC - Constitutional Appears: Non-toxic, No Acute Distress - Head Exam Head Exam: ATRAUMATIC, NORMOCEPHALIC - Eye Exam Eye Exam: EOMI - ENT Exam ENT Exam: Mucous Membranes Moist - Neck Exam Neck exam: Positive for: Full Rom - Respiratory Exam Respiratory Exam: expiratory wheezing, decreased breath sounds bilaterally - Cardiovascular Exam Cardiovascular Exam: tachycardia, +S1, +S2. absent: Systolic Murmur - GI/Abdominal Exam GI & Abdominal Exam: Normal Bowel Sounds, Soft, Non tender to palpation absent : Distended, Firm, Mass, Rebound, Rigid - Extremities Exam Extremities exam: Positive for: normal inspection. Negative for: calf tenderness, pedal edema - Neurological Exam Neurological exam: Alert, Oriented x3 - Psychiatric Exam Psychiatric exam: Normal Affect, Normal Mood - Skin Skin Exam: Intact, Normal Color, Warm Discharge Plan - Discharge Medications Prescriptions: Methylprednisolone [Medrol Dose Pack (21 tabs)] See Taper PO DAILY #21 mg Oseltamivir [Tamiflu Cap] 75 mg PO BID 4 Days cap - Follow Up Plan Condition: FAIR Disposition: HOME/ ROUTINE Instructions: Asthma, Adult (DC), Flu, Adult (DC) Additional Instructions: Patient Instructions: Take medications as prescribed. Follow up with PMD within three to five days from discharge. Return to the emergency room for evaluation of intractable headache, fever, chills, dizziness, chest pain, shortness of breath, abdominal pain, nausea, vomiting, diarrhea, constipation, and urinary symptoms. Referrals: Zacarias Shen MD [Primary Care Provider] - <Latonia Dejesus - Last Filed: 09/28/17 14:09> Provider - Provider Date of Admission: 09/27/17 12:44 Attending physician: Latonia Dejesus MD Primary care physician: Zacarias Shen MD Hospital Course - Lab Results Lab Results: Most Recent Lab Values WBC 30.2 10^3/ul (4.5-11.0) H* D 09/28/17 06:45 RBC 4.36 10^6/uL (3.5-6.1) 09/28/17 06:45 Hgb 10.7 g/dL (12.0-16.0) L 09/28/17 06:45 Hct 32.1 % (36.0-48.0) L 09/28/17 06:45 MCV 73.6 fl (80.0-105.0) L 09/28/17 06:45 MCH 24.5 pg (25.0-35.0) L 09/28/17 06:45 MCHC 33.3 g/dl (31.0-37.0) 09/28/17 06:45 RDW 15.8 % (11.5-14.5) H 09/28/17 06:45 Plt Count 261 10^3/uL (120.0-450.0) 09/28/17 06:45 MPV 11.5 fl (7.0-11.0) H 09/28/17 06:45 Gran % 91.5 % (50.0-68.0) H 09/28/17 06:45 Lymph % (Auto) 4.1 % (22.0-35.0) L 09/28/17 06:45 York % (Auto) 4.4 % (1.0-6.0) 09/28/17 06:45 Eos % (Auto) 0.0 % (1.5-5.0) L 09/28/17 06:45 Baso % (Auto) 0.0 % (0.0-3.0) 09/28/17 06:45 Gran # 27.60 (1.4-6.5) H 09/28/17 06:45 Lymph # (Auto) 1.2 (1.2-3.4) 09/28/17 06:45 York # (Auto) 1.3 (0.1-0.6) H 09/28/17 06:45 Eos # (Auto) 0.0 (0.0-0.7) 09/28/17 06:45 Baso # (Auto) 0.00 K/mm3 (0.0-2.0) 09/28/17 06:45 Neutrophils % (Manual) 88 % (50.0-70.0) H 09/27/17 08:26 Lymphocytes % (Manual) 9 % (22.0-35.0) L 09/27/17 08:26 Monocytes % (Manual) 3 % (1.0-6.0) 09/27/17 08:26 Platelet Evaluation P (NORMAL) 09/27/17 08:26 PT 12.7 SECONDS (9.4-12.5) H 09/27/17 08:26 INR 1.10 (0.93-1.08) H 09/27/17 08:26 APTT 29.7 Seconds (25.1-36.5) 09/27/17 08:26 Sodium 140 mmol/L (132-148) 09/28/17 06:45 Potassium 3.9 mmol/L (3.6-5.0) 09/28/17 06:45 Chloride 106 mmol/L (98-107) 09/28/17 06:45 Carbon Dioxide 24 mmol/L (21-33) 09/28/17 06:45 Anion Gap 14 (10-20) 09/28/17 06:45 BUN 11 mg/dL (7-21) 09/28/17 06:45 Creatinine 0.7 mg/dl (0.7-1.2) 09/28/17 06:45 Est GFR ( Amer) > 60 09/28/17 06:45 Est GFR (Non-Af Amer) > 60 09/28/17 06:45 Random Glucose 138 mg/dL (70-110) H 09/28/17 06:45 Calcium 9.1 mg/dL (8.4-10.5) 09/28/17 06:45 Total Bilirubin 0.3 mg/dL (0.2-1.3) 09/28/17 06:45 AST 24 U/L (14-36) 09/28/17 06:45 ALT 28 U/L (7-56) 09/28/17 06:45 Alkaline Phosphatase 57 U/L (38-126) 09/28/17 06:45 Lactate Dehydrogenase 469 U/L (333-699) 09/28/17 00:48 Total Creatine Kinase 186 U/L (35-230) 09/28/17 00:48 CK-MB (CK-2) 0.6 ng/mL (0.0-3.6) 09/27/17 09:00 CK-MB (CK-2) % Cancelled 09/27/17 09:00 Troponin I < 0.01 ng/mL 09/28/17 00:48 Total Protein 7.5 g/dL (5.8-8.3) 09/28/17 06:45 Albumin 3.8 g/dL (3.0-4.8) 09/28/17 06:45 Globulin 3.7 gm/dL 09/28/17 06:45 Albumin/Globulin Ratio 1.0 (1.1-1.8) L 09/28/17 06:45 Beta HCG, Quant < 2.39 mIU/mL (0-6.15) 09/27/17 09:00 Influenza Typ A,B (EIA) Pos for influenza b (NEGATIVE) H 09/27/17 08:45 Attending/Attestation - Attestation I have personally seen and examined this patient.: Yes I have fully participated in the care of the patient.: Yes I have reviewed all pertinent clinical information, including history, physical exam and plan: Yes Notes (Text): I have seen and examined the patient at bedside. Agree with the above note with the following additions/ exceptions: Briefly this is 32 year old female with history of asthma, ERENDIRA, morbid obesity who was admitted for evaluation of chest pain, dyspnea, wheezing, body aches, chills and cough. She was found to have influenza B and asthma exacerbation. Patient feels much better. She is able to take deep breath. Only has mild cough and mild body aches. She is not using accessory muscles. Denies chest pain, palpitations, sputum production, abdominal pain or any other complaints. Continue tamiflu. Serial troponins are negative. EKG showed some T wave changes which were note in previous EKG as well. Pateint recently followed up with her wooden shade hardware installer for bariatric surgery clearance. CXR revealed venous congestion. Echo was done. Result is pending. Advised the patient to call us back to get results. Patient will be discharged home on medrol dose pack. Upon discharge patient will follow up with Dr Zacarias Shen. Dr Latonia Dejesus
[2017-09-28] MEDS ORDERED: MethylPREDNISolone 40 mg Vial IVP SCH (10:00)
--- NOTE | 2017-09-29 07:09 | CARD ---
APPROVED REPORT EXAM: Two-dimensional and M-mode echocardiogram with Doppler and color Doppler. INDICATION ARRYTHMIA 2D DIMENSIONS Left Atrium (2D)4.7 (1.6-4.0cm)IVSd1.0 (0.7-1.1cm) LVDd4.9 (3.9-5.9cm)PWd1.0 (0.7-1.1cm) LVDs3.2 (2.5-4.0cm)FS (%) 34.6 % LVEF (%)63.4 (>50%) M-Mode DIMENSIONS Aortic Root3.40 (2.2-3.7cm)Aortic Cusp Exc.1.60 (1.5-2.0cm) Aortic Valve AoV Peak Wxynwtsd862.0cm/sAoV VTI36.1cmAO Peak GR.17mmHg LVOT Peak Dyqpszzr030.0cm/sLVOT VTI27.10cmAO Mean GR.9mmHg Mitral Valve MV E Rwtqauza490.0cm/sMV A Rpbzbjoh549.0cm/sE/A ratio1.3 TDI Lateral E' Peak V15.40cm/sMedial E' Peak V11.20cm/sE/Lateral E'8.5 E/Medial E'11.7 Pulmonary Valve PV Peak Rqnabhyv803.0cm/sPV Peak Grad.6mmHg Tricuspid Valve TR Peak Kccsnplj756wz/sRAP [id number] Peak Gr.10mmHg [id number] LEFT VENTRICLE The left ventricle is normal size. There is normal left ventricular wall thickness. The left ventricular function is normal. The left ventricular ejection fraction is within the normal range. There is normal LV segmental wall motion. RIGHT VENTRICLE The right ventricle is normal size. The right ventricular systolic function is normal. ATRIA The left atrium is moderately dilated. The right atrium size is normal. The interatrial septum is intact with no evidence for an atrial septal defect. AORTIC VALVE The aortic valve is normal in structure. No aortic regurgitation is present. There is no aortic valvular stenosis. MITRAL VALVE The mitral valve is normal in structure. There is no mitral valve regurgitation noted. TRICUSPID VALVE The tricuspid valve is normal in structure. There is no tricuspid valve regurgitation noted. PULMONIC VALVE The pulmonary valve is normal in structure. GREAT VESSELS The aortic root is normal in size. The IVC is normal in size and collapses >50% with inspiration. PERICARDIAL EFFUSION There is no pleural effusion. There is no pericardial effusion. <Conclusion> Dilated LA. Otherwise normal study.
== END 2017-09-28 13:24 | disposition home or self-care (01) ==
LOC: ED 07:57 → ERH 12:44 → 5RSO 18:57
PROVIDERS: ADMIT Hospitalist; ATTEND Hospitalist
DX: J45.901 Unspecified asthma with (acute) exacerbation (principal); J10.1 Influenza due to other identified influenza virus with other respiratory manifestations; G47.33 Obstructive sleep apnea (adult) (pediatric); Z82.5 Family history of asthma and other chronic lower respiratory diseases; R65.10 Systemic inflammatory response syndrome (SIRS) of non-infectious origin without acute organ dysfunction; E66.01 Morbid (severe) obesity due to excess calories; Z68.43 Body mass index [BMI] 50.0-59.9, adult; R40.2412 Glasgow coma scale score 13-15, at arrival to emergency department
CPT/HCPCS: 36415; 71045; 80053; 82550; 82553; 83615; 84484; 84702; 85025; 85610; 85730; 87804; 93005; 93306; 94640; 94660; 94760; 96374; 96375; 96376; 99285; G0378; J1885; J2920; J2930; J7040